=== PATIENT | female | born 1955 | race Caucasian/White ===

== ENCOUNTER 2018-06-11 10:12 | Inpatient (IN) | payer BC ==
--- NOTE | 2018-06-11 11:09 | ED ---
Shortness of Breath - HPI Summary HPI Summary: The pt is a 62 y/o female with a MHx of COPD presenting to [facility] c/o SOB since yesterday. She notes cough dizziness, fever, chills, and cough. The pt was seen at [facility] yesterday for a sinus infection and discharged with an Aumentin prescription, which she last took this morning. She also took a nebulizer q4 hrs , steroids and Lasix to no relief. She denies a hx of CHF. - History of Current Complaint Chief Complaint: EDShortnessOfBreath Time Seen by Provider: 06/11/18 10:47 Hx Obtained From: Patient, Family/Work Station Support Specialist - Onset/Duration: Lasting Days - 1 day, Still Present Timing: Constant Alleviating Factors: Other - Coughing Associated Signs & Symptoms: Cough (Productive), Fever, Chills, Dizzy - Allergy/Home Medications Allergies/Adverse Reactions: Allergies Allergy/AdvReac Type Severity Reaction Status Date / Time Iodinated Contrast- Oral and Allergy Rash And Verified 06/11/18 10:37 IV Dye Itching Sulfa (Sulfonamide Allergy Hives Verified 06/11/18 10:37 Antibiotics) warfarin Allergy Rash And Verified 06/11/18 10:37 Itching Home Medications: Home Medications Albuterol 2.5MG/3ML (0.083%)* [Ventolin 2.5 MG/3 ML NEB.DAMION*] 2.5 mg INH Q4H PRN 06/11/18 [History Confirmed 06/11/18] Ascorbic Acid TAB* [Vitamin C TAB*] 250 mg PO DAILY 06/11/18 [History Confirmed 06/11/18] Baclofen TAB* [Lioresal TAB*] 20 mg PO BID 06/11/18 [History Confirmed 06/11/18 ] Dexamethasone TAB* [Decadron TAB*] 1 mg PO TU 06/11/18 [History Confirmed ] Dexamethasone TAB* [Decadron TAB*] 1.5 mg PO MO 06/11/18 [History Confirmed ] Fluticasone/Vilanterol MDI(NF) [Breo Ellipta MDI 200/25(NF)] 1 puff INH DAILY [History Confirmed 06/11/18] Krill Oil 500 mg PO DAILY 06/11/18 [History Confirmed 06/11/18] Lenalidomide (NF) [Revlimid (NF)] 25 mg PO QPM 06/11/18 [History Confirmed 06/11] Lidocaine PATCH 5%* [Lidoderm 5% Patch*] 1 patch TRANSDERM DAILY 06/11/18 [ History Confirmed 06/11/18] Magnesium Gluconate 250 mg PO BID 06/11/18 [History Confirmed 06/11/18] Nicotine PATCH 21 MG/24 HR* 21 mg TRANSDERM DAILY 06/11/18 [History Confirmed ] Omeprazole CAP* [Prilosec CAP* 20 MG] 20 mg PO DAILY PRN 06/11/18 [History Confirmed 06/11/18] Ondansetron TAB* [Zofran 4 MG Tab*] 4 mg PO Q6H PRN 06/11/18 [History Confirmed 06/11/18] Oxybutynin TAB* [Ditropan TAB*] 2.5 mg PO BID 06/11/18 [History Confirmed ] Rivaroxaban TAB(*) [Xarelto 20 mg] 20 mg PO DAILY 06/11/18 [History Confirmed ] Zoledronic Acid* [Zometa] 4 mg IV MONTHLY 06/11/18 [History Confirmed 06/11/18] PMH/Surg Hx/FS Hx/Imm Hx Previously Healthy: No Endocrine/Hematology History: Denies: Hx Diabetes Cardiovascular History: Reports: Hx Hypercholesterolemia, Hx Hypotension Denies: Hx Hypertension, Hx Pacemaker/ICD Respiratory History: Reports: Hx Chronic Obstructive Pulmonary Disease (COPD) Denies: Hx Asthma, Hx Pulmonary Embolism GI History: Reports: Hx Diverticulosis, Hx Gall Bladder Disease History: Denies: Hx Renal Disease Musculoskeletal History: Reports: Hx Arthritis - left knee, Hx Back Problems Sensory History: Reports: Hx Contacts or Glasses Denies: Hx Hearing Aid Opthamlomology History: Reports: Hx Contacts or Glasses EENT History: Reports: Other - Sinus infection Psychiatric History: Denies: Hx Panic Disorder - Cancer History Cancer Type, Location and Year: RECENT DIAGNOSIS OF SPINAL TUMORS REMOVED AT [facility] 2014 Hx Chemotherapy: Yes Hx Radiation Therapy: No - Surgical History Surgery Procedure, Year, and Place: GALLBLADDER, TUBAL LIGATION,. TUMORS REMOVED FROM SPINE( @ [place]), W/ HONORIO PLACEMENT DUE TO DETORIATION - Immunization History Date of Influenza Vaccine: Up to date Infectious Disease History: No Infectious Disease History: Denies: Traveled Outside the [place] in Last 30 Days - Social History Occupation: Employed Part-time, Retired Lives: With Family Alcohol Use: None Substance Use Type: Reports: None Smoking Status (MU): Current Every Day Smoker Type: Cigarettes Amount Used/How Often: 1 pack/day Have You Smoked in the Last Year: Yes Review of Systems Constitutional: Other - Positive: Dizziness Positive: Fever, Chills Positive: Shortness Of Breath, Cough All Other Systems Reviewed And Are Negative: Yes Physical Exam - Summary Physical Exam Summary: GENERAL: Patient is a well developed and nourished F who is lying comfortable in the stretcher. Pt appears uncomfortable secondary to coughing. HEAD AND FACE: Normocephalic EYES: PERRLA, EOMI x 2. EARS: Hearing grossly intact. MOUTH: Oropharynx within normal limits. NECK: Supple, trachea is midline, no adenopathy, no JVD, no carotid bruit. CHEST: Symmetric, no tenderness at palpation LUNGS: Clear to auscultation bilaterally. Decreased breath sounds bilaterally in the in lower lobes CVS: Regular rate and rhythm, S1 and S2 present, no murmurs or gallops appreciated. ABDOMEN: Soft, non-tender. Bowel sounds are normal. No abdominal abnormal pulsations. EXTREMITIES: Full ROM in all major joints, no edema, no cyanosis or clubbing. NEURO: Alert and oriented x 3. No acute neurological deficits. Speech is normal and follows commands. SKIN: Dry and warm Triage Information Reviewed: Yes Vital Signs On Initial Exam: Initial Vitals Temp Pulse Resp BP Pulse Ox 98.8 F 98 24 141/65 92 06/11/18 10:31 06/11/18 10:31 06/11/18 10:31 06/11/18 10:31 06/11/18 10:31 Vital Signs Reviewed: Yes Diagnostics - Vital Signs Vital Signs Temp Pulse Resp BP Pulse Ox 06/11/18 10:31 98.8 F 98 24 141/65 92 - Laboratory Result Diagrams: 06/11/18 12:13 06/11/18 12:13 Lab Statement: Any lab studies that have been ordered have been reviewed, and results considered in the medical decision making process. - Radiology CXR Radiology Interpretation Completed By: Radiologist - IMPRESSION: LEFT BASILAR INFILTRATE MOST CONSISTENT WITH PNEUMONIA. RECOMMEND FOLLOW-UP CHEST X-RAYS TO RESOLUTION. The ED physician reviewed this radiology report. Re-Evaluation - Re-Evaluation First Eval Re-Evaluation Time: 13:52 Change: Unchanged - Pt notes Constant pain but declines pain medications. The pain is aggravated by deep breath Course/Dx - Course Course Of Treatment: A 62 year-old F presents to the ED with a CC of SOB since yesterday. She notes cough dizziness, fever, chills, and cough. She also took a nebulizer q4 hrs, steroids and Lasix to no relief. A physical exam revealed decreased breath sounds bilaterally in the in lower lobes and discomfort secondary to coughing. A CXR revealed L basilar infiltrates consistent with PNA. In the ED course, pt was given Albuterol 1 neb INH twice, Dexamethasone 10 mg IV, N.s 0.9% 1000mL IV, Potassium chloride 40 meq, Cefriaxone 1mg in N.s 0.9% 50 mL IVPB and Azithromycin 500mg in N.s 0.9% 500 mL IV which improved the symptoms. I discussed the care of the patient with Dr. Jamie MD who agreed to admit the pt. Patient will be admitted with a final Dx of pneumonia. I discussed results with patient. The patient agrees with this plan. Allergies noted. - Diagnoses Provider Diagnoses: Pneumonia - Physician Notifications Discussed Care of Patient With: Linda Ayala - Hospitalist Instructed by Provider To: Admit As Inpatient Discharge - Sign-Out/Discharge Documenting (check all that apply): Patient Departure - Admit - Discharge Plan Condition: Stable Disposition: ADMITTED TO [facility] - Billing Disposition and Condition Condition: STABLE Disposition: Admitted to [facility] - Attestation Statements Document Initiated by Bobbyibsherley: Yes Documenting Scribe: Caroline Arambula Provider For Whom Adal is Documenting (Include Credential): Dr. Kaylin Qureshi MD Scribe Attestation: Caroline Soliz , scribed for Dr. Kaylin Qureshi MD on 06/11/18 at 2042. Scribe Documentation Reviewed: Yes Provider Attestation: The documentation as recorded by the Caroline olivares accurately reflects the service I personally performed and the decisions made by me, Dr. Kaylin Qureshi MD
[2018-06-11] MEDS ORDERED: NS 0.9% 500 ML* 500 ML IV ONE (11:12)
[2018-06-11] MEDS ORDERED: Dexamethasone IV* 4 MG/ML 5 ML VIAL (20 MG) IVPB ONE (11:12)
[2018-06-11] MEDS ORDERED: Albuterol/Ipratropium NEB.SOL* Albuterol 2.5 MG/Ipratropium 0.5 MG 3 ML INH ONE ×2 (11:12→11:13)
[2018-06-11 12:26] LABS: ABS Basophils 0 10^3/ul (0-0.2); ABS Eosinophils 0 10^3/ul (0-0.6); ABS Lymphocytes 1.1 10^3/ul (1.0-4.8); ABS Monocytes 0.4 10^3/ul (0-0.8); ABS Neutrophils 5.8 10^3/ul (1.5-7.7); ABS Nucleated RBC 0 10^3/ul; Eosinophil % 0.4 % (0-6); Hematocrit 40 % (35-47); Hemoglobin 13.5 g/dl (12.0-16.0); Lymphocyte % 14.6 % (25-47); Mean Corpuscular HGB Conc 34 g/dl (31-36); Mean Corpuscular Hemoglobin 32 pg (27-31); Mean Corpuscular Volume 94 fL (80-97); Mean Platelet Volume 9.2 um3 (7.4-10.4); Nucleated Red Blood Cells % 0; Platelet Count 176 10^3/ul (150-450); Red Blood Count 4.24 10^6/ul (4.00-5.40); Red Cell Distribution Width 16 % (10.5-15); White Blood Count 7.3 10^3/ul (3.5-10.8)
[2018-06-11 12:47] LABS: EGFR Non-African American 92.1 (>60)
[2018-06-11 12:49] LABS: INR 1.14 (0.77-1.02)
[2018-06-11] MEDS ORDERED: Azithromycin IV(*) 500 MG in NS 0.9% 250 ML* 250 ML IVPB ONE (13:12)
[2018-06-11] MEDS ORDERED: cefTRIAXone(*) 1 GM in NS 0.9% 50 ML* 50 ML IVPB ONE (13:13)
[2018-06-11] MEDS ORDERED: Potassium Chlor TAB* 20 MEQ TAB.ER PO ONE (13:14)
--- NOTE | 2018-06-11 13:37 | RAD ---
INDICATION: Cough. COMPARISON: Comparison is made with a prior study from March 31, 2015. TECHNIQUE: Dual-energy PA and lateral views of the chest were obtained. FINDINGS: The heart is within normal limits in size. Mediastinal and hilar contours appear within normal limits. The lungs are underinflated. There is a focal infiltrate present at the left lung base in the left upper lobe. No pleural effusion is seen. Postsurgical changes are noted in the lower dorsal upper lumbar spine. IMPRESSION: LEFT BASILAR INFILTRATE MOST CONSISTENT WITH PNEUMONIA. RECOMMEND FOLLOW-UP CHEST X-RAYS TO RESOLUTION.
[2018-06-11] MEDS ORDERED: Al Hydrox/Mg Hydrox/Simet LIQ* 30 ML UDC PO PRN (14:33)
[2018-06-11] MEDS ORDERED: Magnesium Hydroxide LIQ* 30 ML UDC PO PRN (14:33)
[2018-06-11] MEDS ORDERED: Albuterol/Ipratropium NEB.SOL* Albuterol 2.5 MG/Ipratropium 0.5 MG 3 ML INH PRN (14:33)
[2018-06-11] MEDS ORDERED: cefTRIAXone(*) 1 GM in NS 0.9% 50 ML* 50 ML IVPB SCH ×2 (15:00→16:00)
[2018-06-11] MEDS ORDERED: Azithromycin IV(*) 500 MG in NS 0.9% 250 ML* 250 ML IVPB SCH (15:00)
[2018-06-11] MEDS ORDERED: Omeprazole CAP* 20 MG PO PRN (17:05)
[2018-06-11] MEDS: Acetaminophen TAB* 325 MG PO PRN (17:23)
[2018-06-11] MEDS: NS 0.9% 1000 ML* 1,000 ML IV SCH (17:24)
[2018-06-11 18:37] LABS: Urine Appearance Clear; Urine Blood Negative (Negative); Urine Color Straw; Urine Ketones Negative (Negative); Urine Protein Negative (Negative); Urine Specific Gravity 1.008 (1.010-1.030); Urine Urobilinogen Negative (Negative)
[2018-06-11] MEDS: Oxybutynin TAB* 5 MG PO SCH (20:37)
[2018-06-11] MEDS: Baclofen TAB* 20 MG PO SCH (20:38)
[2018-06-11] MEDS: Nicotine Patch Removal NOTE PATCH OFF SCH (20:38)
[2018-06-11] MEDS: Lidocaine Patch REMOVE* 1 NOTE MISC PATCH OFF SCH (20:39)
--- NOTE | 2018-06-11 21:31 | HP ---
AMENDED REPORT NOW INCLUDES DESIGNATED COSIGNER CC: Dr. Janell Gunter; Dr. Dempsey * HISTORY AND PHYSICAL: DATE OF ADMISSION: 06/11/18 PRIMARY CARE PROVIDER: Dr. Janell Gunter. ATTENDING PHYSICIAN: Dr. Ayala* (dictated by Bulmaro Polk NP). CHIEF COMPLAINT: 1. Difficulty breathing. 2. Coughing. 3. Congestion. 4. Muscle aches. HISTORY OF PRESENT ILLNESS: Ms. Baker is a 62-year-old female with a history of COPD, who presented to the ED today with complaints of shortness of breath, coughing, congestion since yesterday. She also notes she has been feeling intermittently dizzy, feverish, chills, and was up all night coughing. The patient reports symptoms started yesterday gradually and she presented to [facility], who diagnosed her with sinusitis due to sinus headache and provided her with a prescription of Augmentin. The patient took 1 dose of Augmentin. Due to being up all night coughing and needing inhalers/nebulizers every few hours overnight, she presented to the ED this morning. On presentation to the ED, the patient was noted to be tachypneic with a respiratory rate of 24. While in the emergency room, a chest x-ray was completed and impression was left basilar infiltrate most consistent with pneumonia. In addition, the patient received DuoNeb inhalations x2, azithromycin, ceftriaxone, Decadron, potassium, and 500 mL of normal saline. Hospitalist team was consulted for admission due to pneumonia. PAST MEDICAL HISTORY: 1. COPD. 2. Spinal compression with paralysis, T10/resolved. 3. Multiple myeloma/remission. 4. Neurogenic bladder/resolved. 5. PE. Four to five years ago, currently anticoagulated due to PE and history of multiple myeloma. 6. UTI (a few weeks ago). PAST SURGICAL HISTORY: 1. Thoracic fusion. 2. Cholecystectomy. 3. Tubal ligation. HOME MEDICATIONS: 1. Zometa 4 mg IV monthly. 2. Zofran 4 mg tabs p.o. q.6 hours p.r.n. 3. Xarelto 20 mg p.o. daily. 4. Krill oil 500 mg p.o. daily. 5. Vitamin C 250 mg p.o. daily. 6. Revlimid 25 mg p.o. q.p.m. 7. Oxybutynin 2.5 mg p.o. b.i.d. 8. Omeprazole 20 mg p.o. daily. 9. Nicotine patch 21 mg transdermally daily. 10. Magnesium gluconate 250 mg p.o. b.i.d. 11. Lidocaine patch, 1 patch transdermally daily. 12. Lasix 20 mg p.o. daily p.r.n. edema. 13. Dexamethasone 1.5 mg p.o. Thursday. 14. Decadron 1 mg p.o. Thursday. 15. Breo Ellipta 1 puff inhalation daily. 16. Baclofen 20 mg p.o. b.i.d. 17. Albuterol 2.5 mg inhalation q.4 hours. ALLERGIES: CONTRAST DYE, SULFA, COUMADIN, DOXYCYCLINE, AUGMENTIN. FAMILY HISTORY: The patient reports family history is limited, but is unaware of family history of CAD or diabetes. Reports mother had lung cancer. SOCIAL HISTORY: The patient is a current tobacco smoker, 1 pack a day for approximately 30 years. Denies alcohol use. Denies drug use. The patient does not work. The patient is . Lives with her . Has 2 grown children. The patient uses a walker for ambulation. The patient completes ADLs independently. REVIEW OF SYSTEMS: Constitutional: The patient reports fever-like symptoms, chills. Denies anorexia. Cardiac: No chest pain, no edema. Respiratory: The patient reports cough and shortness of breath. No hemoptysis. GI: The patient denies nausea or vomiting. No diarrhea. No abdominal pain. : No gross hematuria. No dysuria. Neurology: No focal weakness or sensory loss. Reports sinus headache, mild. Eyes: No visual complaints. ENT: No dysphagia , no nasal congestion, no ear pain. Musculoskeletal: Reports mild muscle aches. Skin: No rashes, lesions. Psych: No psychosis, anxiety, depression, or SI. PHYSICAL EXAMINATION GENERAL: Ms. Baker is a 62-year-old female. She is well developed, well nourished, and slightly obese, sitting up on the ED stretcher, in no acute distress. Appears stated age. is at bedside. VITAL SIGNS: Temp 100.0, HR 89, RR 18, O2 92% on room air, BP 145/63. HEENT: Conjunctivae normal. Pupils are equal and reactive. EOMs intact. External ears within normal limits. Auditory canals patent. TMs within normal limits. Oropharynx is moist. No erythema, exudate, or lesions. LYMPHATIC: No cervical lymphadenopathy. RESPIRATORY: Effort: No use of accessory muscles. The patient is breathing with ease. Occasional cough noted. Lungs: Aeration is diminished. Sparse wheezing. Rhonchi noted in left lower base. CARDIAC: No murmurs, rubs, or gallops. S1 and S2 present. No edema. Positive pedal pulses. ABDOMEN: Soft, nontender, nondistended. Bowel sounds x4. MUSCULOSKELETAL: No clubbing or cyanosis. No abnormalities. Full range of motion. NEURO: CN II through XII intact. Moves all extremities. Sensation grossly intact. PSYCH: Oriented x3. Mood and affect normal. No anxiety, depression. SKIN: Inspection, no rashes. Palpation, no abnormalities. DIAGNOSTIC STUDIES/LAB DATA: Chest x-ray: Impression: Left basilar infiltrate most consistent with pneumonia. Recommend followup chest x-ray to resolution. WBC 7.3, RBC 4.24, hemoglobin 13.5, hematocrit is 40. Sodium 136, potassium 3.2 , chloride 103, carbon dioxide 26, BUN 7, creatinine 0.65, glucose 157, calcium 8.8. CRP 146.11. BNP 137. ASSESSMENT AND PLAN: Ms. Baker is a 62-year-old female with a past medical history of chronic obstructive pulmonary disease, multiple myeloma, spinal compression, who presents to the ED today with shortness of breath, cough, congestion, and was found to have pneumonia. The patient will be admitted inpatient for pneumonia. 1. Pneumonia: Assessment: The patient is breathing without difficulty with occasional cough noted. Lung sounds as above. Albuterol nebulizers ordered q.4 hours p.r.n. Prednisone ordered 50 mg p.o. daily to start tomorrow. Rocephin 1 g q.24 hours. Azithromycin 500 mg q. day. We will monitor the patient's O2 saturation and encourage incentive spirometry and nebulization. We will repeat chest x-ray tomorrow if deemed necessary. Labs will be repeated tomorrow including CRP, CBC, BMP. 2. Systemic inflammatory response syndrome/sepsis: It should be noted that during the patient's emergency room visit, her temp was 100.0, she was noted to be tachypneic at 24 respirations per minute. The patient was pancultured while in the ED. I have also ordered sputum culture. Antibiotics have been ordered. The patient has received approximately 850 mL normal saline in the ED. I will initiate further fluid resuscitation with normal saline 75 mL an hour x1 bag. I am not fluid resuscitating aggressively due to the patient's risk for fluid retention due to obesity and edema (for which she takes Lasix as needed). We also noted to have a mildly elevated BNP at 137. 3. Chronic obstructive pulmonary disease: Assessment: The patient is breathing with ease. Plan: We will continue nebulizers q.4 hours p.r.n. We will also continue the patient's home medication of Breo Ellipta 1 puff inhalation daily. Prednisone will be started tomorrow. Received dexamethasone in the ED. We will encourage incentive spirometry and monitor O2 saturation. 4. Multiple myeloma: Assessment: The patient reports she is in remission and follows with Dr. Dempsey. Plan: My attending, Dr. Ayala, spoke to Dr. Dempsey and we will hold the patient's Revlimid and give prednisone 50 mg daily for 5 days. 5. FEN: As mentioned above, the patient received approximately 850 mL of normal saline in the ED. I will further fluid resuscitate the patient with 1000 mL normal saline at 75 mL per hour. The patient will be given a regular diet and encouraged to take p.o. fluids. 6. Code status: Full code. 7. DVT prophylaxis: The patient is on Xarelto for pulmonary embolism history and multiple myeloma. We will continue with Xarelto. Ordered SCDs and encouraged early ambulation. 8. Healthcare proxy: , Girish Baker. TIME SPENT: Approximately 60 minutes was spent on the admission, greater than half the time was spent with the patient and caregiver obtaining my history, performing my physical exam, and reviewing my plan of care. The case has been reviewed with my attending, Dr. Ayala, who is in agreement with this plan. BULMARO POLK, KYLE [id number]/[facility] #: [id number] [facility]IMINALLY INSANESeth
[2018-06-11] MEDS: Benzonatate CAP* 100 MG PO PRN (23:20)
[2018-06-12] MEDS: Acetaminophen TAB* 325 MG PO PRN ×4 (04:12→22:50)
[2018-06-12] MEDS ORDERED: Albuterol 2.5 MG/3 ML NEB.SOL* (0.083%) INH PRN (07:36)
[2018-06-12 07:48] LABS: ABS Basophils 0 10^3/ul (0-0.2); ABS Eosinophils 0 10^3/ul (0-0.6); ABS Monocytes 0.3 10^3/ul (0-0.8); ABS Neutrophils 4.5 10^3/ul (1.5-7.7); ABS Nucleated RBC 0 10^3/ul; Eosinophil % 0.5 % (0-6); Hematocrit 39 % (35-47); Hemoglobin 13.1 g/dl (12.0-16.0); Lymphocyte % 16.6 % (25-47); Mean Corpuscular HGB Conc 34 g/dl (31-36); Mean Corpuscular Hemoglobin 32 pg (27-31); Mean Corpuscular Volume 95 fL (80-97); Mean Platelet Volume 9.5 um3 (7.4-10.4); Nucleated Red Blood Cells % 0; Platelet Count 174 10^3/ul (150-450); Red Blood Count 4.08 10^6/ul (4.00-5.40); Red Cell Distribution Width 16 % (10.5-15); White Blood Count 5.8 10^3/ul (3.5-10.8)
[2018-06-12 07:57] LABS: EGFR Non-African American 93.7 (>60)
[2018-06-12] MEDS: NS 0.9% 1000 ML* 1,000 ML IV SCH ×3 (08:19→21:03)
[2018-06-12] MEDS: Nicotine PATCH 21 MG/24 HR* PATCH TRANSDERM SCH (08:23)
[2018-06-12] MEDS: Baclofen TAB* 20 MG PO SCH ×2 (08:23→20:28)
[2018-06-12] MEDS: Rivaroxaban TAB(*) 20 MG TAB PO SCH (08:23)
[2018-06-12] MEDS: Ascorbic Acid TAB* 500 MG PO SCH (08:24)
[2018-06-12] MEDS: Magnesium Oxide TAB* 400 MG PO SCH (08:24)
[2018-06-12] MEDS: predniSONE TAB* 50 MG PO SCH (08:24)
[2018-06-12] MEDS: Oxybutynin TAB* 5 MG PO SCH ×2 (08:24→20:28)
[2018-06-12] MEDS: Lidocaine PATCH 5%* 1 PATCH TRANSDERM SCH (08:25)
[2018-06-12] MEDS: Ondansetron TAB* 4 MG PO PRN ×2 (09:49→20:29)
[2018-06-12] MEDS: Benzonatate CAP* 100 MG PO PRN ×3 (13:32→20:28)
--- NOTE | 2018-06-12 14:16 | PN ---
Subjective Date of Service: 06/12/18 Interval History: Pt seen and examined. Meds and labs reviewed. Pt feels her SOB has improved CC: N/A ROS: Denied VEGA/dizziness, F/C, N/V, CP, SOB, increased cough, sputum production , abd pain, diarrhea, constipation, dysuria, myalgias, arthralgias, throat pain , and new skin lesions. The rest of the 14 point ROS are unremarkable. PHYSICAL EXAM: GEN APPEARANCE: Awake, not in acute distress HEENT: NC/AT, PERRLA, moist oral mucosa, (-) throat erythema NECK: Soft, supple, (-) cervical LAD, (-)JVD HEART: S1S2 WNL, RRR, No MRG CHEST: Occasional diffuse crackles, GAE, No W/R/R ABD: Soft, ND/NT, NABS 4x Q EXT: No C/C/E SKIN: Warm to touch PSYCH: No active psychosis, hallucinations, depression, SI/HI Objective Active Medications: Acetaminophen (Tylenol Tab*) 650 mg PO Q4H PRN PRN Reason: FEVER/PAIN Last Admin: 06/12/18 11:17 Dose: 650 mg Al Hydrox/Mg Hydrox/Simethicone (Maalox Plus*) 30 ml PO Q6H PRN PRN Reason: INDIGESTION Albuterol (Ventolin 2.5 Mg/3 Ml Neb.Ly*) 2.5 mg INH Q2H PRN PRN Reason: SOB/WHEEZING Albuterol/Ipratropium (Duoneb (Albuterol 2.5 Mg/Ipratropium 0.5 Mg)) 1 neb INH [id number] AWAKE PRN PRN Reason: sob/wheexing Ascorbic Acid (Vitamin C Tab*) 250 mg PO DAILY [facility] Last Admin: 06/12/18 08:24 Dose: 250 mg Baclofen (Lioresal Tab*) 20 mg PO BID [facility] Last Admin: 06/12/18 08:23 Dose: 20 mg Benzonatate (Tessalon Cap*) 100 mg PO TID PRN PRN Reason: COUGH Last Admin: 06/12/18 13:32 Dose: 100 mg Ceftriaxone Sodium 1 gm/ (Sodium Chloride) 50 mls @ 200 mls/hr IVPB 1600 [facility] Azithromycin 500 mg/ Sodium (Chloride) 250 mls @ 250 mls/hr IVPB 1500 [facility] Sodium Chloride (Ns 0.9% 1000 Ml*) 1,000 mls @ 100 mls/hr IV PER RATE [facility] Stop: 06/13/18 18:18 Last Admin: 06/12/18 08:23 Dose: 100 mls/hr Lidocaine (Lidoderm 5% Patch*) 1 patch TRANSDERM DAILY [facility] Last Admin: 06/12/18 08:25 Dose: Not Given Magnesium Hydroxide (Milk Of Magnesia Liq*) 30 ml PO Q4H PRN PRN Reason: CONSTIPATION Magnesium Oxide (Magox 400 Tab*) 400 mg PO DAILY [facility] Last Admin: 06/12/18 08:24 Dose: 400 mg Nicotine (Nicotine Patch 21 Mg/24 Hr*) 1 patch TRANSDERM DAILY [facility] Last Admin: 06/12/18 08:23 Dose: 1 patch Omeprazole (Prilosec Cap*) 20 mg PO DAILY PRN PRN Reason: HEARTBURN Ondansetron HCl (Zofran Tab*) 4 mg PO Q6H PRN PRN Reason: NAUSEA Last Admin: 06/12/18 09:49 Dose: 4 mg Oxybutynin Chloride (Ditropan Tab*) 2.5 mg PO BID [facility] Last Admin: 06/12/18 08:24 Dose: 2.5 mg Pharmacy Profile Note (Nicotine Patch Removal Note*) 1 note PATCH OFF 2100 [facility] Last Admin: 06/11/18 20:38 Dose: Not Given Pharmacy Profile Note (Lidocaine Patch Remove*) 1 note PATCH OFF 2100 [facility] Last Admin: 06/11/18 20:39 Dose: Not Given Prednisone (Deltasone Tab*) 50 mg PO DAILY [facility] Last Admin: 06/12/18 08:24 Dose: 50 mg Rivaroxaban (Xarelto(*)) 20 mg PO DAILY [facility] Last Admin: 06/12/18 08:23 Dose: 20 mg Vital Signs - 8 hr 06/12/18 06/12/18 06/12/18 07:15 07:25 08:31 Temperature 97.8 F Pulse Rate 65 Respiratory 16 16 Rate Blood Pressure 130/39 128/58 (mmHg) O2 Sat by Pulse 100 Oximetry 06/12/18 11:23 Temperature 97.3 F Pulse Rate 74 Respiratory 16 Rate Blood Pressure 156/51 (mmHg) O2 Sat by Pulse 96 Oximetry Oxygen Devices in Use Now: None Result Diagrams: 06/12/18 06:49 06/12/18 06:49 Microbiology and Other Data: Microbiology 06/11/18 12:12 Aerobic Blood Culture - Preliminary Blood Venous No Growth Day 1 Anaerobic Blood Culture - Preliminary No Growth Day 1 06/11/18 12:11 Aerobic Blood Culture - Preliminary Blood Venous No Growth Day 1 Anaerobic Blood Culture - Preliminary No Growth Day 1 06/12/18 08:31 Gram Stain - Final Sputum 06/11/18 17:38 Legionella Urinary Antigen - Final Urine Negative Legionella Antigen Streptococcus pneumoniae Ag Screen - Final Negative S. pneumo Antigen 06/11/18 15:20 Influenza Types A,B Antigen - Final Nasopharyngeal Specimen received for Influenza A/B Molecular testing Assess/Plan/Problems-Billing Assessment: - Patient Problems (1) Sepsis due to pneumonia Current Visit: Yes Status: Acute Code(s): J18.9 - PNEUMONIA, UNSPECIFIED ORGANISM; A41.9 - SEPSIS, UNSPECIFIED ORGANISM SNOMED Code(s): 65399890 Comment: -Continue Rocephin and Azithromycin -Sepsis appears to be improving and likely other factors driving increasing lactic acid level---please see discussion below -Continue Prednisoneif pt continues to improve, start tapering in AM -Urine Ag test for Legionella and S. pneumo (-) -Blood Cx (-) x1 day (2) Lactic acid blood increased Current Visit: Yes Status: Acute Code(s): R79.89 - OTHER SPECIFIED ABNORMAL FINDINGS OF BLOOD CHEMISTRY SNOMED Code(s): 6589568 Comment: -Despite improvement of sepsis, lactic acid continues to climbdoubt that most of its elevation is due to sepsis as pt appears clinically improved and currently hemodynamically stable without any respiratory distress -On review of past data, pt has had what appears to be chronic elevation of lactic acid and maybe related to the fact that pt has had history of multiple myeloma, now thought to be in remission -Pt mentioned she just F/U at Dr. Sosa office 2 weeks [employer] and was told that everything was fine -Will defer on F/U with Heme/Onc (3) Multiple myeloma Current Visit: Yes Status: Acute Code(s): C90.00 - MULTIPLE MYELOMA NOT HAVING ACHIEVED REMISSION SNOMED Code(s): 592629118 Comment: -Thought to be in remission from last Heme/Onc F/U described above -Possible cause of increasing lactic acid? -Off of Revlimid while PNA w/mild sepsis being treated (4) COPD (chronic obstructive pulmonary disease) Current Visit: Yes Status: Acute Code(s): J44.9 - CHRONIC OBSTRUCTIVE PULMONARY DISEASE, UNSPECIFIED SNOMED Code(s): 45848339 Comment: -Not in acute exacerbation at this time -Continue current nebulization treatment (5) Hx pulmonary embolism Current Visit: Yes Status: Acute Code(s): Z86.711 - PERSONAL HISTORY OF PULMONARY EMBOLISM SNOMED Code(s): 269533923 Comment: -Continue Xarelto (6) Tobacco abuse Current Visit: No Status: Chronic Priority: Medium Code(s): Z72.0 - TOBACCO USE SNOMED Code(s): 692422724 Comment: -Advised lifestyle modifications -Continue Nicotine patch (7) DVT prophylaxis Current Visit: No Status: Acute Priority: Medium Onset Date: 08/23/14 Code(s): JEP1823 - SNOMED Code(s): 885951294 Comment: -On Xarelto Status and Disposition: -For ambulatory sats in AM
[2018-06-12] MEDS: Azithromycin IV(*) 500 MG in NS 0.9% 250 ML* 250 ML IVPB SCH (14:58)
[2018-06-12] MEDS ORDERED: cefTRIAXone(*) 1 GM in NS 0.9% 50 ML* 50 ML IVPB SCH (15:00)
[2018-06-12] MEDS ORDERED: Azithromycin IV(*) 500 MG in NS 0.9% 250 ML* 250 ML IVPB SCH (15:00)
[2018-06-12] MEDS: cefTRIAXone(*) 1 GM in NS 0.9% 50 ML* 50 ML IVPB SCH (16:24)
[2018-06-12] MEDS: Lidocaine Patch REMOVE* 1 NOTE MISC PATCH OFF SCH (20:30)
[2018-06-12] MEDS: Nicotine Patch Removal NOTE PATCH OFF SCH (20:30)
[2018-06-12] MEDS: Hemorrhoidal OINT PR PRN (23:13)
[2018-06-13] MEDS: Acetaminophen TAB* 325 MG PO PRN ×4 (03:51→19:20)
[2018-06-13 06:34] LABS: ABS Basophils 0 10^3/ul (0-0.2); ABS Eosinophils 0.1 10^3/ul (0-0.6); ABS Lymphocytes 1.6 10^3/ul (1.0-4.8); ABS Monocytes 0.6 10^3/ul (0-0.8); ABS Neutrophils 3.9 10^3/ul (1.5-7.7); ABS Nucleated RBC 0 10^3/ul; Hematocrit 34 % (35-47); Hemoglobin 11.2 g/dl (12.0-16.0); Lymphocyte % 26.2 % (25-47); Mean Corpuscular HGB Conc 33 g/dl (31-36); Mean Corpuscular Hemoglobin 32 pg (27-31); Mean Corpuscular Volume 96 fL (80-97); Mean Platelet Volume 8.4 um3 (7.4-10.4); Nucleated Red Blood Cells % 0; Platelet Count 174 10^3/ul (150-450); Red Blood Count 3.54 10^6/ul (4.00-5.40); Red Cell Distribution Width 16 % (10.5-15); White Blood Count 6.1 10^3/ul (3.5-10.8)
[2018-06-13 06:45] LABS: EGFR Non-African American 109.3 (>60)
[2018-06-13] MEDS: Lidocaine PATCH 5%* 1 PATCH TRANSDERM SCH (07:47)
[2018-06-13] MEDS: Oxybutynin TAB* 5 MG PO SCH ×2 (07:53→21:15)
[2018-06-13] MEDS: Ascorbic Acid TAB* 500 MG PO SCH (07:54)
[2018-06-13] MEDS: Rivaroxaban TAB(*) 20 MG TAB PO SCH (07:55)
[2018-06-13] MEDS: predniSONE TAB* 50 MG PO SCH (07:55)
[2018-06-13] MEDS: Magnesium Oxide TAB* 400 MG PO SCH (07:55)
[2018-06-13] MEDS: Baclofen TAB* 20 MG PO SCH ×2 (07:56→21:15)
[2018-06-13] MEDS: Nicotine PATCH 21 MG/24 HR* PATCH TRANSDERM SCH (07:56)
[2018-06-13] MEDS: Benzonatate CAP* 100 MG PO PRN ×3 (08:03→21:19)
[2018-06-13] MEDS: Hemorrhoidal OINT PR PRN (12:55)
--- NOTE | 2018-06-13 13:59 | PN ---
Subjective Date of Service: 06/13/18 Interval History: Pt seen and examined. Meds and labs reviewed. Pt feels her SOB has improved CC: N/A ROS: Denied VEGA/dizziness, F/C, N/V, CP, SOB, increased cough, sputum production , abd pain, diarrhea, constipation, dysuria, myalgias, arthralgias, throat pain , and new skin lesions. The rest of the 14 point ROS are unremarkable. PHYSICAL EXAM: GEN APPEARANCE: Awake, not in acute distress HEENT: NC/AT, PERRLA, moist oral mucosa, (-) throat erythema NECK: Soft, supple, (-) cervical LAD, (-)JVD HEART: S1S2 WNL, RRR, No MRG CHEST: Occasional crackles, now primarily located on bases, GAE, No W/R/R ABD: Soft, ND/NT, NABS 4x Q EXT: No C/C/E SKIN: Warm to touch PSYCH: No active psychosis, hallucinations, depression, SI/HI Objective Active Medications: Acetaminophen (Tylenol Tab*) 650 mg PO Q4H PRN PRN Reason: FEVER/PAIN Last Admin: 06/13/18 12:58 Dose: 650 mg Al Hydrox/Mg Hydrox/Simethicone (Maalox Plus*) 30 ml PO Q6H PRN PRN Reason: INDIGESTION Albuterol (Ventolin 2.5 Mg/3 Ml Neb.Ly*) 2.5 mg INH Q2H PRN PRN Reason: SOB/WHEEZING Albuterol/Ipratropium (Duoneb (Albuterol 2.5 Mg/Ipratropium 0.5 Mg)) 1 neb INH [id number] AWAKE PRN PRN Reason: sob/wheexing Ascorbic Acid (Vitamin C Tab*) 250 mg PO DAILY [facility] Last Admin: 06/13/18 07:54 Dose: 250 mg Baclofen (Lioresal Tab*) 20 mg PO BID [facility] Last Admin: 06/13/18 07:56 Dose: 20 mg Benzonatate (Tessalon Cap*) 100 mg PO TID PRN PRN Reason: COUGH Last Admin: 06/13/18 08:03 Dose: 100 mg Ceftriaxone Sodium 1 gm/ (Sodium Chloride) 50 mls @ 200 mls/hr IVPB 1600 [facility] Last Admin: 06/12/18 16:24 Dose: 200 mls/hr Azithromycin 500 mg/ Sodium (Chloride) 250 mls @ 250 mls/hr IVPB 1500 [facility] Last Admin: 06/12/18 14:58 Dose: 250 mls/hr Sodium Chloride (Ns 0.9% 1000 Ml*) 1,000 mls @ 100 mls/hr IV PER RATE [facility] Stop: 06/13/18 18:18 Last Admin: 06/12/18 21:03 Dose: 100 mls/hr Lidocaine (Lidoderm 5% Patch*) 1 patch TRANSDERM DAILY [facility] Last Admin: 06/13/18 07:47 Dose: Not Given Magnesium Hydroxide (Milk Of Magnesia Liq*) 30 ml PO Q4H PRN PRN Reason: CONSTIPATION Magnesium Oxide (Magox 400 Tab*) 400 mg PO DAILY [facility] Last Admin: 06/13/18 07:55 Dose: 400 mg Nicotine (Nicotine Patch 21 Mg/24 Hr*) 1 patch TRANSDERM DAILY [facility] Last Admin: 06/13/18 07:56 Dose: 1 patch Omeprazole (Prilosec Cap*) 20 mg PO DAILY PRN PRN Reason: HEARTBURN Ondansetron HCl (Zofran Tab*) 4 mg PO Q6H PRN PRN Reason: NAUSEA Last Admin: 06/12/18 20:29 Dose: 4 mg Oxybutynin Chloride (Ditropan Tab*) 2.5 mg PO BID [facility] Last Admin: 06/13/18 07:53 Dose: 2.5 mg Pharmacy Profile Note (Nicotine Patch Removal Note*) 1 note PATCH OFF 2100 [facility] Last Admin: 06/12/18 20:30 Dose: 1 note Pharmacy Profile Note (Lidocaine Patch Remove*) 1 note PATCH OFF 2100 [facility] Last Admin: 06/12/18 20:30 Dose: Not Given Phenyleph/Shark Oil/Min Oil/Petrol (Preparation H*) 1 applic [place] TID PRN PRN Reason: RECTAL HEMORRHOIDS Last Admin: 06/13/18 12:55 Dose: 1 applic Prednisone (Deltasone Tab*) 50 mg PO DAILY [facility] Last Admin: 06/13/18 07:55 Dose: 50 mg Rivaroxaban (Xarelto(*)) 20 mg PO DAILY [facility] Last Admin: 06/13/18 07:55 Dose: 20 mg Vital Signs - 8 hr 06/13/18 06/13/18 06/13/18 07:40 07:51 07:58 Temperature 97.8 F Pulse Rate 68 61 Respiratory 16 Rate Blood Pressure 122/78 138/30 126/66 (mmHg) O2 Sat by Pulse 94 Oximetry 06/13/18 06/13/18 06/13/18 08:00 08:20 10:58 Temperature 99.0 F Pulse Rate 68 Respiratory 18 18 Rate Blood Pressure 142/53 (mmHg) O2 Sat by Pulse 94 95 Oximetry 06/13/18 13:55 Temperature Pulse Rate Respiratory Rate Blood Pressure (mmHg) O2 Sat by Pulse 96 Oximetry Oxygen Devices in Use Now: None Result Diagrams: 06/13/18 06:15 06/13/18 06:15 Microbiology and Other Data: Microbiology 06/11/18 12:12 Aerobic Blood Culture - Preliminary Blood Venous No Growth Day 1 Anaerobic Blood Culture - Preliminary No Growth Day 1 06/11/18 12:11 Aerobic Blood Culture - Preliminary Blood Venous No Growth Day 1 Anaerobic Blood Culture - Preliminary No Growth Day 1 06/12/18 08:31 Gram Stain - Final Sputum 06/11/18 17:38 Legionella Urinary Antigen - Final Urine Negative Legionella Antigen Streptococcus pneumoniae Ag Screen - Final Negative S. pneumo Antigen 06/11/18 15:20 Influenza Types A,B Antigen - Final Nasopharyngeal Specimen received for Influenza A/B Molecular testing Assess/Plan/Problems-Billing Assessment: - Patient Problems (1) Sepsis due to pneumonia Current Visit: Yes Status: Acute Code(s): J18.9 - PNEUMONIA, UNSPECIFIED ORGANISM; A41.9 - SEPSIS, UNSPECIFIED ORGANISM SNOMED Code(s): 69064292 Comment: -Continue Rocephin and Azithromycin -Sepsis appears resolved and likely other factors driving increasing lactic acid level (from previous trend described)---please see discussion below -Start tapering Prednisone by AM -Urine Ag test for Legionella and S. pneumo (-) -Blood Cx (-) x2 days (2) Lactic acid blood increased Current Visit: Yes Status: Acute Code(s): R79.89 - OTHER SPECIFIED ABNORMAL FINDINGS OF BLOOD CHEMISTRY SNOMED Code(s): 2976180 Comment: -Despite improvement of sepsis, lactic acid continues to climbdoubt that most of its elevation is due to sepsis as pt appears clinically improved and currently hemodynamically stable without any respiratory distress -On review of past data, pt has had what appears to be chronic elevation of lactic acid and maybe related to the fact that pt has had history of multiple myeloma, now thought to be in remission -Pt mentioned she just F/U at Dr. Sosa office 2 weeks [employer] and was told that everything was fine -D/W Dr. Dempsey this AM and confirmed that based on latest urine globulins and eval, pt remains to be on remission -Unclear cause of elevated lactic acid (3) Multiple myeloma Current Visit: Yes Status: Acute Code(s): C90.00 - MULTIPLE MYELOMA NOT HAVING ACHIEVED REMISSION SNOMED Code(s): 026074074 Comment: -Thought to be in remission from last Heme/Onc F/U described above -Off of Revlimid while PNA w/mild sepsis being treated will continue to hold -Resume Revlimid until PNA is fully treated per Dr. Dempsey (4) COPD (chronic obstructive pulmonary disease) Current Visit: Yes Status: Acute Code(s): J44.9 - CHRONIC OBSTRUCTIVE PULMONARY DISEASE, UNSPECIFIED SNOMED Code(s): 17737398 Comment: -Not in acute exacerbation at this time -Continue current nebulization treatment (5) Hx pulmonary embolism Current Visit: Yes Status: Acute Code(s): Z86.711 - PERSONAL HISTORY OF PULMONARY EMBOLISM SNOMED Code(s): 699676710 Comment: -Continue Xarelto (6) Tobacco abuse Current Visit: No Status: Chronic Priority: Medium Code(s): Z72.0 - TOBACCO USE SNOMED Code(s): 955611622 Comment: -Advised lifestyle modifications -Continue Nicotine patch (7) DVT prophylaxis Current Visit: No Status: Acute Priority: Medium Onset Date: 08/23/14 Code(s): FQM3582 - SNOMED Code(s): 657031624 Comment: -On Xarelto Status and Disposition: -Nursing staff mentioned pt was a bit unsteady in gait -Will continue to observe and wait for PT eval
[2018-06-13] MEDS: Azithromycin IV(*) 500 MG in NS 0.9% 250 ML* 250 ML IVPB SCH (15:16)
[2018-06-13] MEDS: cefTRIAXone(*) 1 GM in NS 0.9% 50 ML* 50 ML IVPB SCH (16:21)
[2018-06-13] MEDS: Ondansetron TAB* 4 MG PO PRN (16:25)
[2018-06-13] MEDS: Lidocaine Patch REMOVE* 1 NOTE MISC PATCH OFF SCH (22:52)
[2018-06-13] MEDS: Nicotine Patch Removal NOTE PATCH OFF SCH (22:53)
[2018-06-14] MEDS: Acetaminophen TAB* 325 MG PO PRN ×2 (05:59→13:44)
[2018-06-14 07:03] LABS: ABS Basophils 0 10^3/ul (0-0.2); ABS Eosinophils 0.1 10^3/ul (0-0.6); ABS Lymphocytes 1.9 10^3/ul (1.0-4.8); ABS Monocytes 0.6 10^3/ul (0-0.8); ABS Nucleated RBC 0 10^3/ul; Hematocrit 34 % (35-47); Hemoglobin 11.3 g/dl (12.0-16.0); Lymphocyte % 34.3 % (25-47); Mean Corpuscular HGB Conc 33 g/dl (31-36); Mean Corpuscular Hemoglobin 32 pg (27-31); Mean Corpuscular Volume 96 fL (80-97); Mean Platelet Volume 8.5 um3 (7.4-10.4); Nucleated Red Blood Cells % 0.2; Platelet Count 199 10^3/ul (150-450); Red Blood Count 3.57 10^6/ul (4.00-5.40); Red Cell Distribution Width 16 % (10.5-15); White Blood Count 5.5 10^3/ul (3.5-10.8)
[2018-06-14 07:20] LABS: EGFR Non-African American 93.7 (>60)
[2018-06-14] MEDS: predniSONE TAB* 50 MG PO SCH (10:20)
[2018-06-14] MEDS: Oxybutynin TAB* 5 MG PO SCH (10:26)
[2018-06-14] MEDS: Ascorbic Acid TAB* 500 MG PO SCH (10:26)
[2018-06-14] MEDS: Rivaroxaban TAB(*) 20 MG TAB PO SCH (10:27)
[2018-06-14] MEDS: Baclofen TAB* 20 MG PO SCH (10:27)
[2018-06-14] MEDS: Lidocaine PATCH 5%* 1 PATCH TRANSDERM SCH (10:28)
[2018-06-14] MEDS: Nicotine PATCH 21 MG/24 HR* PATCH TRANSDERM SCH (10:28)
[2018-06-14] MEDS: Magnesium Oxide TAB* 400 MG PO SCH (10:28)
[2018-06-14 12:37] VITALS: BP 138/54
[2018-06-14] MEDS: Ondansetron TAB* 4 MG PO PRN (13:45)
--- NOTE | 2018-06-15 04:21 | DS ---
CC: Dr. Ayala; Dr. Kaylin Qureshi; Dr. Janell Gunter * DISCHARGE SUMMARY: DATE OF ADMISSION: DATE OF DISCHARGE: 06/14/18 DISCHARGE DIAGNOSES: 1. Sepsis secondary to pneumonia, sepsis resolved. 2. Lactic acid elevation, incongruent with the level of sepsis, has now normalized; on review of previous hospitalizations and blood draws, the patient has had some chronic elevation of lactic acid; patient is to repeat lactic acid level in 2 weeks. 3. History of multiple myeloma, thought to be on remission. 4. Chronic obstructive pulmonary disease, not in acute exacerbation. 5. History of pulmonary embolism, on Xarelto. 6. Tobacco abuse. DISCHARGE MEDICATIONS: Are as follows: 1. Vitamin C 250 mg p.o. daily. 2. Baclofen 20 mg p.o. b.i.d. 3. Benzonatate capsules 100 mg p.o. t.i.d. p.r.n. 4. Lidocaine patch 5% 1 patch transdermally daily. 5. Nicotine patch 21 mg/24 hour period daily. 6. Omeprazole 20 mg p.o. daily. 7. Ondansetron 4 mg p.o. q.6 p.r.n. 8. Oxybutynin 2.5 mg p.o. b.i.d. 9. Xarelto 20 mg p.o. daily. 10. Albuterol nebulization 2.5 mg inhalation q.4 p.r.n. 11. Dexamethasone 1 mg p.o. Thursday and 1.5 mg p.o. Thursday. 12. Doxycycline 100 mg p.o. b.i.d. for 8 more days. 13. Breo Ellipta 1 puff inhalation daily. 14. Krill oil 500 mg p.o. daily. 15. Clarinex tablet 1 tab p.o. daily for 12 more days. 16. Revlimid 25 mg p.o. q.p.m. - the patient was advised to continue to hold Revlimid until she has done with her antibiotics. 17. Magnesium gluconate 250 mg p.o. b.i.d. 18. Prednisone rapid taper. 19. Zoledronic acid 4 mg IV monthly. HISTORY OF PRESENT ILLNESS/HOSPITAL COURSE: The patient is a 62-year-old lady with a history of COPD, multiple myeloma, thought to be on remission, as well as previous history of PE 4 to 5 years ago, on Xarelto, who presented with a chief complaint of shortness of breath, coughing, and congestion since the day prior to admission. She was then assessed to have sepsis secondary to pneumonia and was placed on a rapid prednisone taper. She is thought unlikely to have any form of PE given she is currently on Xarelto for a previous history of PE due to her multiple myeloma. On admission, she was found to have lactic acid of 2.3 and despite improving sepsis, was found to be increasing. On review of her previous data, previous hospitalization shows her to have abnormal lactic acid than normal and unclear whether this may be due to some form on genetic predisposition to lactic acidosis given no conditions other than sepsis is contributing given Oncology thinks that her multiple myeloma is in remission given she was just recently seen at Dr. Dempsey' s office 2 weeks prior to this admission where her globulin was said to be in the normal limit and hence we will defer. We have advised the patient to redraw her blood work laboratories in 2 weeks when she has completed her course of antibiotics and no longer on antibiotics. She had been advised to follow up and/or call her PCP within 3 days post discharge. She was advised that if her symptoms resume or develop new ones or feel unwell for any reason to call her PCP first and if her PCP cannot entertain her due to scheduling issues alone, she was advised to call [facility] if the issue is considered non-emergent. She was advised to stop smoking and to continue to use her nicotine patch to dampen her craving. She was advised to resume her Revlimid only after she has finished her antibiotic regimen and this was discussed with Dr. Dempsey prior to her discharge. She was advised to call my office regarding any questions, concerns , or further clarifications regarding her discharge plans and/or prescription and to take her medications as prescribed. The patient had an ambulatory saturation just prior to her discharge and it is determined that she does not need any additional oxygen supplementation. REVIEW OF SYSTEMS: She denied any recent headaches, dizziness, fevers, chills, nausea, vomiting, chest pain, shortness of breath, increased cough nor sputum production, abdominal pain, diarrhea, constipation, pain and/or increased frequency on urination, myalgias, arthralgias, throat pain, or new skin lesions. The rest of the 14-point review of systems are otherwise unremarkable. PHYSICAL EXAMINATION: Reveals the most recent vital signs of records with blood pressure of 138/54, 97.9 degrees Fahrenheit, 58 beats per minute heart rate, 18 per minute respiratory rate, saturating at 97% on room air. General Appearance: The patient is awake, alert, and oriented, not in acute distress, obese. HEENT: Normocephalic, atraumatic. PERRLA. Extraocular muscles intact. Negative for icterus. Moist oral mucosa. Negative throat erythema. Neck is soft, supple, with no cervical lymphadenopathy. No JVD. Heart: S1, S2 within normal limits. Regular rate and rhythm. No murmurs, rubs, and gallops. Chest: Clear to auscultation bilaterally. Good air entry. No wheezes, rales, or rhonchi. Abdomen is soft, nondistended, nontender. Normoactive bowel sounds x4 quadrants. Extremities: No cyanosis, clubbing, or edema. Psychiatric: No active psychosis, depression, suicidal or homicidal ideations. Skin is warm to touch. TIME SPENT: The total time spent evaluating the patient, reviewing pertinent data, and appropriate documentation is 50 minutes. [id number] #: [id number] MTDD
== END 2018-06-14 14:50 | disposition home or self-care (01) | DRG 720 ==
LOC: ED 10:12 → MED 14:33
PROVIDERS: ADMIT Internal Medicine; ATTEND Student in an Organized Health Care Education/Training Program
DX: A41.9 Sepsis, unspecified organism (principal); J18.9 Pneumonia, unspecified organism; E87.2 Acidosis; Z68.41 Body mass index [BMI] 40.0-44.9, adult; C90.01 Multiple myeloma in remission; J44.9 Chronic obstructive pulmonary disease, unspecified; F17.210 Nicotine dependence, cigarettes, uncomplicated; E66.9 Obesity, unspecified; Z86.711 Personal history of pulmonary embolism; Z79.01 Long term (current) use of anticoagulants; Z79.899 Other long term (current) drug therapy; Z88.2 Allergy status to sulfonamides; Z88.8 Allergy status to other drugs, medicaments and biological substances; Z88.1 Allergy status to other antibiotic agents; Z91.041 Radiographic dye allergy status; Z80.1 Family history of malignant neoplasm of trachea, bronchus and lung
CPT/HCPCS: 36415; 71046; 80048; 80053; 81003; 83605; 83735; 83880; 84100; 84484; 85025; 85610; 85730; 86140; 87040; 87070; 87205; 87899; 96365; 96375; 99283; A9270-GY; J0456; J0696; J1100; J7512

== ENCOUNTER 2019-05-24 10:07 | Emergency (ER) | payer SELFPAY ==
[2019-05-24] MEDS ORDERED: NS 0.9% 1000 ML** 1,000 ML IV ONE (10:21)
--- NOTE | 2019-05-24 10:34 | ED ---
Respiratory - HPI Summary HPI Summary: 63 year old F [place] [facility] accompanied by complains of productive cough and shortness of breath since yesterday 05/23/19 evening. She reports fatigue. She denies fever, pain in her bilateral calves. Patient states she has an inhaler which she did not use [employer]. states he was seen at [facility] yesterday and was diagnosed with pneumonia. Patient additionally complains of left elbow swelling. Patient ambulates with a cane. The patient rates the pain 4/10 in severity per nurse triage note but pt denies pain to Dr. Salas. Symptoms aggravated by nothing. Symptoms alleviated by nothing. Patient is immunosuppressed due to chemotherapy for multiple myeloma. states patient has had multiple myeloma for the last 4-5 years (2013- 2014). Her oncologist is Dr. Dempsey whom patient states she sees every 3 months. Patient states she receives at home chemotherapy, Revlimid. Her primary care provider is Dr. Gunter. Patient has not received her influenza vaccination yet, and plans to get it in a few weeks when she sees Dr. Dempsey. PMHx: COPD for which she does not wear at home oxygen. Denies PMHx [place] and atrial fibrillation. Takes Xarelto. Surgical Hx: back surgery. FHx: mother from lung cancer. Patient smokes cigarettes, denies drinking alcohol, and uses oral CBD oil for inflammation at home. Vital signs at triage: HR 86 BPM, BP 137/84, O2 sat 96% Home Medications Medication Instructions Recorded Confirmed Type Albuterol 2.5MG/3ML (0.083%)* 2.5 mg INH Q4H PRN 06/11/18 05/24/19 History [Ventolin 2.5 MG/3 ML NEB.DAMION*] Ascorbic Acid TAB* [Vitamin C 250 mg PO DAILY 06/11/18 05/24/19 History TAB*] Baclofen TAB* [Lioresal TAB*] 20 mg PO BID 06/11/18 05/24/19 History Dexamethasone TAB* [Decadron TAB*] 1 mg PO TU 06/11/18 05/24/19 History Dexamethasone TAB* [Decadron TAB*] 1.5 mg PO MO 06/11/18 05/24/19 History Fluticasone/Vilanterol MDI(NF) 1 puff INH DAILY 06/11/18 05/24/19 History [Breo Ellipta MDI 200/25(NF)] Krill Oil 500 mg PO DAILY 06/11/18 05/24/19 History Lenalidomide (NF) [Revlimid (NF)] 25 mg PO QPM 06/11/18 05/24/19 History Magnesium Gluconate 250 mg PO BEDTIME 06/11/18 05/24/19 History Nicotine PATCH 21 MG/24 HR* 21 mg TRANSDERM DAILY 06/11/18 05/24/19 History Omeprazole CAP (NF) [Prilosec CAP* 20 mg PO DAILY PRN 06/11/18 05/24/19 History 20 MG] Ondansetron TAB* [Zofran 4 MG Tab*] 4 mg PO Q6H PRN 06/11/18 05/24/19 History Oxybutynin TAB* [Ditropan TAB*] 2.5 mg PO BID 06/11/18 05/24/19 History Rivaroxaban TAB(*) [Xarelto 20 mg] 20 mg PO BEDTIME 06/11/18 05/24/19 History Zoledronic Acid* [Zometa*] 4 mg IV .Q 3 MONTHS 06/11/18 05/24/19 History Albuterol HFA INHALER* [Ventolin 2 puff INH Q4H PRN 05/24/19 05/24/19 History HFA Inhaler*] Ciprofloxacin TAB* [Cipro 500 MG 500 mg PO BID 05/24/19 05/24/19 History TAB*] Furosemide TAB* [Lasix TAB*] 20 mg PO DAILY 05/24/19 05/24/19 History Mupirocin 2% OINT* [Bactroban 2 % 1 applic TOPICAL BID 05/24/19 05/24/19 History Oint*] - History of Current Complaint Chief Complaint: EDShortnessOfBreath Hx Obtained From: Patient, Family/Paralegal Specialist - Onset/Duration: Lasting Hours - yesterday 05/23/19 evening, Still Present Timing: Constant Current Severity: Moderate Pain Intensity: 4 - per business editor Character: Cough (Productive) Sputum Amount: Moderate Sputum Color: Yellow Aggravating Factor(s): Nothing Alleviating Factor(s): Nothing Associated Signs and Symptoms: Negative - neg fever, calf pain, SOB - Allergy/Home Medications Allergies/Adverse Reactions: Allergies Allergy/AdvReac Type Severity Reaction Status Date / Time Iodinated Contrast Media Allergy Rash And Verified 06/11/18 10:37 [Iodinated Contrast- Oral Itching and IV Dye] Sulfa (Sulfonamide Allergy Hives Verified 06/11/18 10:37 Antibiotics) warfarin Allergy Rash And Verified 06/11/18 10:37 Itching Home Medications: Home Medications Albuterol HFA INHALER* [Ventolin HFA Inhaler*] 2 puff INH Q4H PRN 05/24/19 [ History Confirmed 05/24/19] Ciprofloxacin TAB* [Cipro 500 MG TAB*] 500 mg PO BID 05/24/19 [History Confirmed 05/24/19] Furosemide TAB* [Lasix TAB*] 20 mg PO DAILY 05/24/19 [History Confirmed 05/24/19 ] Mupirocin 2% OINT* [Bactroban 2 % Oint*] 1 applic TOPICAL BID 05/24/19 [History Confirmed 05/24/19] PMH/Surg Hx/FS Hx/Imm Hx Previously Healthy: No Endocrine/Hematology History: Reports: Hx Bone Marrow Disease - multiple myeloma Denies: Hx Diabetes Cardiovascular History: Reports: Hx Hypercholesterolemia Denies: Hx Hypertension, Hx Pacemaker/ICD Respiratory History: Reports: Hx Chronic Obstructive Pulmonary Disease (COPD) Denies: Hx Asthma, Hx Pulmonary Embolism GI History: Reports: Hx Diverticulosis, Hx Gall Bladder Disease History: Denies: Hx Renal Disease Musculoskeletal History: Reports: Hx Arthritis - left knee, Hx Back Problems - thoracic fusion Sensory History: Reports: Hx Contacts or Glasses Denies: Hx Hearing Aid Opthamlomology History: Reports: Hx Contacts or Glasses Psychiatric History: Denies: Hx Panic Disorder - Cancer History Cancer Type, Location and Year: SPINAL TUMORS REMOVED AT [facility] 2014; multiple myeloma Hx Chemotherapy: Yes Hx Radiation Therapy: No - Surgical History Surgery Procedure, Year, and Place: GALLBLADDER, TUBAL LIGATION,. TUMORS REMOVED FROM SPINE (@ [place]), W/ HONORIO PLACEMENT DUE TO DETERIORATION Infectious Disease History: No Infectious Disease History: Denies: Traveled Outside the [place] in Last 30 Days - Family History Known Family History: Positive: Other - mother from lung cancer - Social History Lives: With Family Alcohol Use: None Substance Use Type: Reports: None Hx Tobacco Use: Yes Smoking Status (MU): Heavy Every Day Tobacco Smoker Type: Cigarettes Amount Used/How Often: 1 pack/day Have You Smoked in the Last Year: Yes Review of Systems Positive: Fatigue. Negative: Fever Cardiovascular: Negative Positive: Shortness Of Breath, Cough Gastrointestinal: Negative Positive: no symptoms reported Musculoskeletal: Negative - pain in her bilateral calves Positive: Other - left elbow swelling Skin: Negative Neurological: Negative Psychological: Normal All Other Systems Reviewed And Are Negative: Yes Physical Exam - Summary Physical Exam Summary: Appearance: Ill-appearing, no pain distress, obese. Patient ambulates with a cane Skin: Warm, color reflects adequate perfusion, dry, She has a scar on her mid thoracic to lumbar region Head: Normal Head/Face inspection, atraumatic Eyes: Conjunctiva clear ENT: Normal inspection Neck: Supple, no nodes, no JVD Respiratory: Shallow breath sounds throughout, expiratory wheezes throughout, no respiratory distress Cardio: RRR, No murmur, pulses normal, brisk capillary refill Abdomen: Soft, nontender Bowel sounds: Present Musculoskeletal: Strength Intact/ROM intact, no calf tenderness, no edema. Left elbow fluctuance and swelling with no redness Psychological: Normal Neuro: Alert, muscle tone normal, no focal deficit Triage Information Reviewed: Yes Vital Signs On Initial Exam: Initial Vitals Temp Pulse Resp BP Pulse Ox 98.1 F 86 18 137/84 96 05/24/19 10:09 05/24/19 10:09 05/24/19 10:09 05/24/19 10:09 05/24/19 10:09 Vital Signs Reviewed: Yes Procedures - Sedation Patient Received Moderate/Deep Sedation with Procedure: No Diagnostics - Vital Signs Vital Signs Temp Pulse Resp BP Pulse Ox 05/24/19 10:09 98.1 F 86 18 137/84 96 - Laboratory Result Diagrams: 05/24/19 10:45 05/24/19 10:45 Lab Statement: Any lab studies that have been ordered have been reviewed, and results considered in the medical decision making process. - Radiology CXR Radiology Interpretation Completed By: Radiologist Summary of Radiographic Findings: FINDINGS CONSISTENT WITH COPD, NO EVIDENCE FOR ACUTE DISEASE. ED physician has reviewed this report. - EKG 1035 Cardiac Rate: NL - 76 BPM EKG Rhythm: Sinus Rhythm ST Segment: Non-Specific Ectopy: None EKG Comparison: No Significant Change - 09/06/14 Summary of EKG Findings: An EKG at 10:35 reveals sinus rhythm 76 BPM, nml AV/IV CT, nml QTc, and nml axis. No acute changes. Similar to prior EKG on 09/06/14. ED MD has reviewed and interpreted this EKG. Re-Evaluation - Re-Evaluation First Eval Re-Evaluation Time: 12:35 Change: Unchanged Comment: patient has dry cough and feels "lousy". she is willing to go home with treatment Second Eval Re-Evaluation Time: 13:19 Change: Improved Comment: the patient feels fine and is ready for discharge. she understands that she does not have pneumonia and her discharge treatments Disposition - Course Course Of Treatment: 63 year old F presenting to [facility] accompanied by complains of productive cough, shortness of breath, fatigue since yesterday 05/23 evening. Pt has COPD, not O2 dependent, and has multiple myeloma and is immunosuppressed doing chemotherapy. Pt still smokes. Physical exam findings: The patient is ill-appearing, in no pain distress, obese. Patient ambulates with a cane. She has a scar on her mid thoracic to lumbar region. She has shallow breath sounds throughout, expiratory wheezes throughout. She has left elbow fluctuance and swelling with no redness. Patient medications reviewed this visit. Nurses notes reviewed. Allergies noted. High blood pressure noted. Bloodwork results with no significant abnormalities except for MCH 32, RDW 16 , INR 1.16 glucose 123, lactic acid 2.8, calcium 8.5, CRP 8.12, BNP 125. Aware of lactic acid 2.8 at 11:30. Blood cultures ordered. Rapid flu tests negative for Influenza A and Influenza B. An EKG at 10:35 reveals sinus rhythm 76 BPM, nml AV/IV CT, nml QTc, and nml axis. No acute changes. Similar to prior EKG on . CXR shows, per radiologist: FINDINGS CONSISTENT WITH COPD, NO EVIDENCE FOR ACUTE DISEASE. In the ED course, the patient was given albuterol 2.5 mg neb and normal saline fluids 1 L IV. The patient was given another albuterol 2.5 mg neb. She was also given doxycycline 100 mg po, Robitussin with codeine 10 mL PO, and Solu-Medrol 125 mg IV. The patient feels better and is agreeable to go home with treatment. She understands that she does not have pneumonia. Patient will be discharged home with prescription for prednisone taper PO, doxycycline 100 mg twice a day for 10 days, and Robitussin with codeine cough syrup PO. She was advised to use Robitussin with codeine at night for her cough and to continue her nebulized treatments every 4 hours as needed for cough and shortness of breath. She was instructed to follow up from Dr. Gunter, her primary care provider, in 2-3 days. Patient was instructed to return to Emergency Department for new or worsening symptoms. Patient understands and is agreeable to this plan. - Differential Dx - Cardiopulmonary Differential Diagnoses - Cardiopulmonary: Bronchitis, CHF, Exacerbation Of COPD , Lower Resp Infection - Diagnoses Provider Diagnoses: COPD exacerbation, Bronchitis, Elevated lactic acid level, Elevated blood pressure reading without diagnosis of hypertension, Tobacco abuse disorder, Multiple myeloma, Olecranon bursitis of left elbow Discharge ED - Sign-Out/Discharge Documenting (check all that apply): Patient Departure - Discharge - Discharge Plan Condition: Stable Disposition: HOME Prescriptions: DOXYcycline CAP(*) [DOXYcycline 100MG CAP(*)] 100 mg PO BID #20 cap guaiFENesin/CODIEN 100MG-10MG* [Robitussin AC 100Mg-10Mg*] 10 ml PO BEDTIME PRN #50 ml MDD 10ml PRN Reason: Cough predniSONE [Prednisone 5 MG TAB] 10 mg PO DAILY #30 tablet Patient Education Materials: Acute Bronchitis (ED), COPD (Chronic Obstructive Pulmonary Disease) (ED) Referrals: Janell Gunter MD [Primary Care Provider] - 2 Days Additional Instructions: You were evaluated for possible pneumonia and your chest x-ray showed only COPD , no definite pneumonia. Your flu swab was also negative for influenza. You were given 2 albuterol treatments by nebulization while you were in the Emergency Department. You were also given Solu-Medrol 125 mg IV. You were given doxycycline 100 mg to start antibiotics for bronchitis. You will be given an oral prednisone taper that you will start tomorrow with pills. You will also take doxycycline 100 mg twice a day for 10 full days. You were given 1 dose of narcotic cough syrup Robitussin with codeine, and you may use this at night for your cough. Continue your nebulized treatments every 4 hours as needed for cough and shortness of breath. Have definite follow-up with Dr. Tomas Winkler in 2-3 days. Return to the Emergency Department for new or worsening symptoms. - Billing Disposition and Condition Condition: STABLE Disposition: Home - Attestation Statements Document Initiated by Adal: Yes Documenting Scribe: Liza Patel Provider For Whom Scribe is Documenting (Include Credential): Tawny Salas MD Scribe Attestation: Liza Soliz, scribed for Tawny Salas MD on 06/14/19 at 0003. Scribe Documentation Reviewed: Yes Provider Attestation: The documentation as recorded by the Liza olivares accurately reflects the service I personally performed and the decisions made by me, Tawny Salas MD Status of Scribe Document: Viewed
[2019-05-24 11:00] LABS: ABS Eosinophils 0.2 10^3/ul (0-0.6); ABS Lymphocytes 1.2 10^3/ul (1.0-4.8); ABS Monocytes 0.4 10^3/ul (0-0.8); ABS Neutrophils 2.1 10^3/ul (1.5-7.7); Eosinophil % 3.9 %; Hematocrit 39 % (35-47); Hemoglobin 13.4 g/dL (12.0-16.0); Lymphocyte % 31.1 %; Mean Corpuscular HGB Conc 34 g/dL (31-36); Mean Corpuscular Hemoglobin 32 pg (27-31); Mean Corpuscular Volume 94 fL (80-97); Mean Platelet Volume 7.9 fL (7.4-10.4); Nucleated Red Blood Cells % 0.2; Platelet Count 218 10^3/uL (150-450); Red Blood Count 4.14 10^6 /uL (3.70-4.87); Red Cell Distribution Width 16 % (10-15); White Blood Count 3.9 10^3/uL (3.5-10.8)
[2019-05-24 11:07] LABS: Activated Partial Thrombo Time 37.3 seconds (26.0-38.0); INR 1.16 (0.82-1.09)
[2019-05-24] MEDS ORDERED: Albuterol 2.5 MG/3 ML NEB.SOL* (0.083%) INH ONE ×2 (11:07→13:05)
[2019-05-24 11:14] LABS: Albumin 3.9 g/dL (3.2-5.2); Albumin/Globulin Ratio 1.5 (1-3); BUN/Creatinine Ratio 15.4 (8-20); C Reactive Protein 8.12 mg/L (<8.01); Calcium 8.5 mg/dL (8.6-10.3); EGFR Non-African American 91.8 (>60); Globulin 2.6 g/dL (2-4); Potassium 3.6 mmol/L (3.5-5.0); Total Bilirubin 0.4 mg/dL (0.2-1.0); Total Protein 6.5 g/dL (6.4-8.9)
[2019-05-24 11:16] LABS: CKMB ng/mL 2.5 ng/mL (0.6-6.3)
[2019-05-24] MEDS ORDERED: guaiFENesin/CODIENE 100mg/10mg 5 ML UDC PO ONE (13:06)
[2019-05-24] MEDS ORDERED: DOXYcycline CAP(*) 100 MG PO ONE (13:07)
[2019-05-24] MEDS ORDERED: methylPREDNISolone 125 MG* 2 ML VIAL IV ONE (13:08)
[2019-05-24 13:14] LABS: Influenza A Molecular NEGATIVE (Negative); Influenza B Molecular NEGATIVE (Negative)
[2019-05-24 14:19] VITALS: BP 119/63
== END 2019-05-24 14:20 | disposition home or self-care (01) ==
LOC: ED 10:07
DX: J44.1 Chronic obstructive pulmonary disease with (acute) exacerbation (principal); J40 Bronchitis, not specified as acute or chronic; R74.0 Nonspecific elevation of levels of transaminase and lactic acid dehydrogenase [LDH]; R03.0 Elevated blood-pressure reading, without diagnosis of hypertension; F17.210 Nicotine dependence, cigarettes, uncomplicated; Z79.01 Long term (current) use of anticoagulants; Z79.899 Other long term (current) drug therapy; E78.00 Pure hypercholesterolemia, unspecified; Z98.51 Tubal ligation status; Z88.2 Allergy status to sulfonamides; Z88.8 Allergy status to other drugs, medicaments and biological substances; Z91.041 Radiographic dye allergy status
CPT/HCPCS: 36415; 71046; 80053; 82550; 82553; 83605; 83880; 84484; 85025; 85610; 85730; 86140; 87040; 93005; 96361; 96374; 99284; A9270-GY; J2930

== ENCOUNTER 2019-10-15 11:11 | Emergency (ER) | payer MEDICARE, OTHER ==
--- NOTE | 2019-10-15 11:49 | ED ---
GI/ HPI - HPI Summary HPI Summary: This patient is a 64 year old F presenting to [facility] with a chief complaint of hematuria and L flank pain since 10/14/19 Pt describes the blood as very dark in urine, and the intermittent pain in L flank also began yesterday. She reports the pain is debilitating when it occurs. Pt reports no change in frequency in urination, and no pain while urinating. Pt has not had similar symptoms previously. Patient reports nausea. Patient denies fever, chills, diarrhea, and constipation. Pt has PMHx multiple myeloma and has been getting treatment for almost 5 years. There has been no change. Pt also takes Xarelto due to blood clots from medication. Pt smoke cigarettes. Medications reviewed. Allergies noted. - History of Current Complaint Chief Complaint: EDFlankPain Time Seen by Provider: 10/15/19 11:26 Stated Complaint: BLOOD IN URINE PER PT Hx Obtained From: Patient Onset/Duration: Started Hours Ago Timing: Intermittent Severity: Severe Current Severity: None Pain Intensity: 0 Location of Pain: Flank Pain Characteristics: Sharp Associated Signs and Symptoms: Positive: Nausea, Hematuria, Flank Pain. Negative: Diarrhea, Fever, Chills Aggravating Factor(s): Nothing Alleviating Factor(s): Spontaneous Resolution - Additional Pertinent History Primary Care Physician: DASIA - Allergy/Home Medications Allergies/Adverse Reactions: Allergies Allergy/AdvReac Type Severity Reaction Status Date / Time Iodinated Contrast Media Allergy Rash And Verified 10/15/19 11:16 [Iodinated Contrast- Oral Itching and IV Dye] Sulfa (Sulfonamide Allergy Hives Verified 10/15/19 11:16 Antibiotics) warfarin Allergy Rash And Verified 10/15/19 11:16 Itching Home Medications: Home Medications Albuterol 2.5MG/3ML (0.083%)* [Ventolin 2.5 MG/3 ML NEB.DAMION*] 2.5 mg INH Q4H PRN 06/11/18 [History Confirmed 05/24/19] Ascorbic Acid TAB* [Vitamin C TAB*] 250 mg PO DAILY 06/11/18 [History Confirmed 05/24/19] Baclofen TAB* [Lioresal TAB*] 20 mg PO BID 06/11/18 [History Confirmed 05/24/19 ] Dexamethasone TAB* [Decadron TAB*] 1 mg PO TU 06/11/18 [History Confirmed ] Dexamethasone TAB* [Decadron TAB*] 1.5 mg PO MO 06/11/18 [History Confirmed 04/04] Fluticasone/Vilanterol MDI(NF) [Breo Ellipta MDI 200/25(NF)] 1 puff INH DAILY [History Confirmed 05/24/19] Krill Oil 500 mg PO DAILY 06/11/18 [History Confirmed 05/24/19] Lenalidomide (NF) [Revlimid (NF)] 25 mg PO QPM 06/11/18 [History Confirmed 05/24] Magnesium Gluconate 250 mg PO BEDTIME 06/11/18 [History Confirmed 05/24/19] Nicotine PATCH 21 MG/24 HR* 21 mg TRANSDERM DAILY 06/11/18 [History Confirmed ] Omeprazole CAP (NF) [Prilosec CAP* 20 MG] 20 mg PO DAILY PRN 06/11/18 [History Confirmed 05/24/19] Ondansetron TAB* [Zofran 4 MG Tab*] 4 mg PO Q6H PRN 06/11/18 [History Confirmed 05/24/19] Oxybutynin TAB* [Ditropan TAB*] 2.5 mg PO BID 06/11/18 [History Confirmed ] Rivaroxaban TAB(*) [Xarelto 20 mg] 20 mg PO BEDTIME 06/11/18 [History Confirmed 05/24/19] Zoledronic Acid* [Zometa*] 4 mg IV .Q 3 MONTHS 06/11/18 [History Confirmed 05/24] Albuterol HFA INHALER* [Ventolin HFA Inhaler*] 2 puff INH Q4H PRN 05/24/19 [ History Confirmed 05/24/19] Ciprofloxacin TAB* [Cipro 500 MG TAB*] 500 mg PO BID 05/24/19 [History Confirmed 05/24/19] DOXYcycline CAP(*) [DOXYcycline 100MG CAP(*)] 100 mg PO BID #20 cap 05/24/19 [Rx ] Furosemide TAB* [Lasix TAB*] 20 mg PO DAILY 05/24/19 [History Confirmed 05/24/19 ] Mupirocin 2% OINT* [Bactroban 2 % Oint*] 1 applic TOPICAL BID 05/24/19 [History Confirmed 05/24/19] guaiFENesin/CODIENE 100mg/10mg [Robitussin AC 100Mg-10Mg*] 10 ml PO BEDTIME PRN #50 ml MDD 10ml 05/24/19 [Rx] predniSONE [Prednisone 5 MG TAB] 10 mg PO DAILY #30 tablet 05/24/19 [Rx] Cephalexin CAP* [Keflex CAP*] 500 mg PO TID 7 Days #21 cap 10/15/19 [Rx] PMH/Surg Hx/FS Hx/Imm Hx Endocrine/Hematology History: Denies: Hx Diabetes Cardiovascular History: Reports: Hx Hypercholesterolemia, Hx Hypotension Denies: Hx Hypertension, Hx Pacemaker/ICD Respiratory History: Reports: Hx Chronic Obstructive Pulmonary Disease (COPD) Denies: Hx Asthma, Hx Pulmonary Embolism GI History: Reports: Hx Diverticulosis, Hx Gall Bladder Disease History: Denies: Hx Dialysis, Hx Renal Disease Musculoskeletal History: Reports: Hx Arthritis - left knee, Hx Back Problems - thoracic fusion Sensory History: Reports: Hx Contacts or Glasses Denies: Hx Hearing Aid Opthamlomology History: Reports: Hx Contacts or Glasses Psychiatric History: Denies: Hx Panic Disorder - Cancer History Cancer Type, Location and Year: RECENT DIAGNOSIS OF SPINAL TUMORS REMOVED AT [facility] 2013 Hx Chemotherapy: Yes Hx Radiation Therapy: No - Surgical History Surgery Procedure, Year, and Place: GALLBLADDER. TUBAL LIGATION. 2013 TUMORS REMOVED FROM SPINE( @[facility]). 2014 W/HONORIO PLACEMENT DUE TO DETORIATION - WAITING OP REPORT FAX SENT - OP REPORT SCANNED INTO EMR NEED PRE MRI TSP AND LSP LAT/AP XRAYS TO CLEAR - Immunization History Date of Influenza Vaccine: Up to date Infectious Disease History: No Infectious Disease History: Denies: Traveled Outside the [place] in Last 30 Days - Family History Known Family History: Positive: Other - mother from lung cancer - Social History Alcohol Use: None Substance Use Type: Reports: None Hx Tobacco Use: Yes Smoking Status (MU): Heavy Every Day Tobacco Smoker Type: Cigarettes Amount Used/How Often: 1 pack/day Have You Smoked in the Last Year: Yes Review of Systems Negative: Fever, Chills Positive: Nausea. Negative: Diarrhea Positive: hematuria. Negative: frequency, pain All Other Systems Reviewed And Are Negative: Yes Physical Exam - Summary Physical Exam Summary: Constitutional: Well-developed, Well-nourished, Alert. (-) Distressed Skin: Warm, Dry HENT: Normocephalic; Atraumatic Eyes: Conjunctiva normal Neck: Musculoskeletal ROM normal neck. (-) JVD, (-) Stridor, (-) Tracheal deviation Cardio: Rhythm regular, rate normal, Heart sounds normal; Intact distal pulses; Radial pulses are 2+ and symmetric. (-) Murmur Pulmonary/Chest wall: Effort normal. (-) Respiratory distress, (-) Wheezes, (-) Rales Abd: Soft, (-) tenderness, (-) Distension, (-) Guarding, (-) Rebound Musculoskeletal: (-) Edema Lymph: (-) Cervical adenopathy Neuro: Alert, Oriented x3 Psych: Mood and affect Normal Triage Information Reviewed: Yes Vital Signs On Initial Exam: Initial Vitals Temp Pulse Resp BP Pulse Ox 98.2 F 98 20 166/84 96 10/15/19 11:14 10/15/19 11:14 10/15/19 11:14 10/15/19 11:14 10/15/19 11:14 Vital Signs Reviewed: Yes Procedures - Sedation Patient Received Moderate/Deep Sedation with Procedure: No Diagnostics - Vital Signs Vital Signs Temp Pulse Resp BP Pulse Ox 10/15/19 11:14 98.2 F 98 20 166/84 96 - Laboratory Result Diagrams: 10/15/19 12:07 10/15/19 12:07 Lab Statement: Any lab studies that have been ordered have been reviewed, and results considered in the medical decision making process. - CT Abdomen/Pelvis CT CT Interpretation Completed By: Radiologist Summary of CT Findings: Abdomen/Pelvis CT reveals, per radiologist IMPRESSION: 1. There is a 4 mm calcification in the lower pole collecting system of the left kidney as. well as a punctate calcification in the dependent portion of the urinary bladder, but. there is no definite hydronephrosis or renal stones identified in either ureter. 2. In the dependent portion of the left upper lobe lingula is a 5 mm subpleural nodule. Round atelectasis is favored, but a malignant pulmonary nodule is not completely excluded. Follow-up imaging can be acquired according to the Fleischner Society criteria noted at. the end of this report. 3. Likely hepatic steatosis. 4. There are additional chronic, degenerative and iatrogenic findings described in the. body of the report. ED physician has reviewed this radiology report. Re-Evaluation - Re-Evaluation First Eval Re-Evaluation Time: 01:34 Comment: Discussed results and plan of care with pt GIGU Course/Dx - Course Course Of Treatment: Patient is here with periodic left flank pain and hematuria. Patient is on Xarelto for blood clots. Patient does have hematuria and leuk esterase in her UA. Patient had a CT scan to evaluate for kidney stone and had to stones in her kidney but nothing that would explain her symptoms. Patient was started on antibiotics given her UA. Patient follow-up with her primary care doctor to make sure her urine clears. Patient also made aware of the lung mass seen on CT and the need to follow-up with her oncologist. - Diagnoses Provider Diagnoses: Hematuria Discharge ED - Sign-Out/Discharge Documenting (check all that apply): Patient Departure - Discharge - Discharge Plan Condition: Stable Disposition: HOME Prescriptions: Cephalexin CAP* [Keflex CAP*] 500 mg PO TID 7 Days #21 cap Patient Education Materials: Hematuria (ED) Referrals: Janell Gunter MD [Primary Care Provider] - 1 Week Additional Instructions: follow up with primary care doctor in one week to make sure symptoms are clearing. You do have a lung nodule that needs to be evaluated by your cancer doctor. Come back to the ED for fever, chills, feeling like you are going to pass out, or any other symptoms. - Billing Disposition and Condition Condition: STABLE Disposition: Home - Attestation Statements Document Initiated by Bobbyibe: Yes Documenting Scribe: Xenia Castañeda Provider For Whom Adal is Documenting (Include Credential): Abdiel Gutierrez MD Scribe Attestation: Xenia Soliz, scribed for Abdiel Gutierrez MD on 10/15/19 at 1439. Scribe Documentation Reviewed: Yes Provider Attestation: The documentation as recorded by the Xenia olivares accurately reflects the service I personally performed and the decisions made by me, Abdiel Gutierrez MD Status of Scribe Document: Viewed
[2019-10-15 12:16] LABS: ABS Eosinophils 0.3 10^3/ul (0-0.6); ABS Lymphocytes 1.1 10^3/ul (1.0-4.8); ABS Monocytes 0.3 10^3/ul (0-0.8); ABS Neutrophils 2.2 10^3/ul (1.5-7.7); Eosinophil % 7.3 %; Hematocrit 39 % (35-47); Hemoglobin 13.4 g/dL (12.0-16.0); Lymphocyte % 27.6 %; Mean Corpuscular HGB Conc 34 g/dL (31-36); Mean Corpuscular Hemoglobin 33 pg (27-31); Mean Corpuscular Volume 96 fL (80-97); Mean Platelet Volume 8.4 fL (7.4-10.4); Nucleated Red Blood Cells % 0.1; Platelet Count 160 10^3/uL (150-450); Red Blood Count 4.09 10^6 /uL (3.70-4.87); Red Cell Distribution Width 16 % (10-15)
[2019-10-15 12:33] LABS: BUN/Creatinine Ratio 14.1 (8-20); Calcium 9.2 mg/dL (8.6-10.3); EGFR Non-African American 82.6 (>60); Potassium 3.6 mmol/L (3.5-5.0)
[2019-10-15 12:47] LABS: Urine Appearance Cloudy; Urine Bacteria Absent (Absent); Urine Bilirubin Negative (Negative); Urine Blood 3+ (Negative); Urine Glucose Negative (Negative); Urine Ketones Negative (Negative); Urine Nitrite Negative (Negative); Urine Protein 2+(100 mg/dL) (Negative); Urine Red Blood Cell 3+(>10/hpf) (Absent); Urine Specific Gravity 1.006 (1.010-1.030); Urine Squamous Epithelial Cell Present (Absent); Urine Urobilinogen Negative (Negative); Urine White Blood Cell 1+(6-10/hpf) (Absent)
[2019-10-15 12:48] LABS: Urine Color Amber
[2019-10-15 14:07] VITALS: BP 166/82
== END 2019-10-15 14:05 | disposition home or self-care (01) ==
LOC: ED 11:11
DX: R31.9 Hematuria, unspecified (principal); R11.0 Nausea; R10.84 Generalized abdominal pain; E78.00 Pure hypercholesterolemia, unspecified; I95.9 Hypotension, unspecified; Z79.51 Long term (current) use of inhaled steroids; Z79.899 Other long term (current) drug therapy; F17.210 Nicotine dependence, cigarettes, uncomplicated; Z79.52 Long term (current) use of systemic steroids; Z88.2 Allergy status to sulfonamides; Z88.3 Allergy status to other anti-infective agents
CPT/HCPCS: 36415; 74176; 80048; 81003; 81015; 85025; 87077; 87086; 87186; 99283

== ENCOUNTER 2021-04-07 07:36 | Observation (INO) ==
[2021-04-07 10:05] LABS: Hematocrit 34 % (35-47); Hemoglobin 11.7 g/dL (12.0-16.0); Mean Corpuscular HGB Conc 35 g/dL (31-36); Mean Corpuscular Hemoglobin 35 pg (27-31); Mean Corpuscular Volume 100 fL (80-97); Mean Platelet Volume 8.2 fL (7.4-10.4); Platelet Count 125 10^3/uL (150-450); Red Blood Count 3.33 10^6 /uL (3.70-4.87); Red Cell Distribution Width 17 % (10-15); White Blood Count 0.9 10^3/uL (3.5-10.8)
[2021-04-07 10:13] LABS: INR 1.57 (0.86-1.15)
[2021-04-07 10:21] LABS: Albumin 3.7 g/dL (3.2-5.2); Albumin/Globulin Ratio 1.8 (1-3); Calcium 8.2 mg/dL (8.6-10.3); EGFR African American 104.7 (>60); EGFR Non-African American 86.6 (>60); Globulin 2.1 g/dL (2-4); Potassium 3.1 mmol/L (3.5-5.0); Total Bilirubin 0.7 mg/dL (0.2-1.0); Total Protein 5.8 g/dL (6.4-8.9)
[2021-04-07] MEDS ORDERED: Albuterol 2.5mg/3 ml (0.083%) NEB.SOLN INH PRN (10:23)
[2021-04-07] MEDS ORDERED: Potassium Chloride LIQUID 20 MEQ/15 ML LIQUID PO ONE (10:33)
[2021-04-07 10:34] LABS: ABS Lymphocytes 0.6 10^3/ul (1.0-4.8); ABS Monocytes 0.3 10^3/ul (0-0.8); ABS Neutrophils 0.1 10^3/ul (1.5-7.7); Eosinophil % 1.9 %
[2021-04-08 07:39] LABS: Hematocrit 33 % (35-47); Hemoglobin 11.4 g/dL (12.0-16.0); Mean Corpuscular HGB Conc 35 g/dL (31-36); Mean Corpuscular Hemoglobin 36 pg (27-31); Mean Corpuscular Volume 102 fL (80-97); Mean Platelet Volume 8.6 fL (7.4-10.4); Platelet Count 115 10^3/uL (150-450); Red Blood Count 3.23 10^6 /uL (3.70-4.87); Red Cell Distribution Width 17 % (10-15); White Blood Count 0.8 10^3/uL (3.5-10.8)
[2021-04-08 07:47] LABS: Calcium 8.3 mg/dL (8.6-10.3); EGFR African American 116.5 (>60); EGFR Non-African American 96.3 (>60); Potassium 3.6 mmol/L (3.5-5.0)
[2021-04-08 08:39] LABS: ABS Eosinophils 0.1 10^3/ul (0-0.6); ABS Lymphocytes 0.5 10^3/ul (1.0-4.8); ABS Monocytes 0.2 10^3/ul (0-0.8); ABS Neutrophils 0.1 10^3/ul (1.5-7.7); Eosinophil % 7.4 %
[2021-04-08] MEDS ORDERED: Mometasone/Formoter 200/5 MDI INH SCH (09:00)
[2021-04-08 11:40] VITALS: BP 99/44
== END 2021-04-08 13:44 | disposition home or self-care (01) ==
LOC: MEDTELE 07:36 → ED 07:36 → MEDTELE 13:22
PROVIDERS: ADMIT Hospitalist; ATTEND Hospitalist

== ENCOUNTER 2021-04-11 13:42 | Inpatient (IN) ==
[2021-04-11] MEDS ORDERED: Piperacillin/Tazobac ADVAN 3.375 GM in NS 0.9% 100 ml BAG 100 ML IV ONE ×2 (14:16→17:06)
[2021-04-11 15:17] LABS: Hematocrit 36 % (35-47); Hemoglobin 12.3 g/dL (12.0-16.0); Mean Corpuscular HGB Conc 34 g/dL (31-36); Mean Corpuscular Hemoglobin 35 pg (27-31); Mean Corpuscular Volume 103 fL (80-97); Mean Platelet Volume 8.2 fL (7.4-10.4); Platelet Count 207 10^3/uL (150-450); Red Blood Count 3.55 10^6 /uL (3.70-4.87); Red Cell Distribution Width 17 % (10-15); White Blood Count 0.9 10^3/uL (3.5-10.8)
[2021-04-11 15:27] LABS: Activated Partial Thrombo Time 28.6 seconds (26.0-38.0); INR 1.36 (0.86-1.15)
[2021-04-11 15:31] LABS: ABS Neutrophils 0.2 10^3/ul (1.5-7.7); Albumin/Globulin Ratio 1.4 (1-3); C Reactive Protein 126.97 mg/L (<8.01); Calcium 9.7 mg/dL (8.6-10.3); EGFR African American 99.7 (>60); EGFR Non-African American 82.4 (>60); Globulin 2.9 g/dL (2-4); Potassium 3.7 mmol/L (3.5-5.0); Total Bilirubin 0.6 mg/dL (0.2-1.0); Total Protein 6.9 g/dL (6.4-8.9); Troponin I 0.01 ng/mL (<0.03)
[2021-04-11 16:26] LABS: ABS Lymphocytes 0.3 10^3/ul (1.0-4.8); ABS Monocytes 0.4 10^3/ul (0-0.8); Eosinophil % 1.6 %; Nucleated Red Blood Cells % 0.2
[2021-04-11] MEDS ORDERED: Ondansetron 4 mg VIAL 2 MG/ML 2 ml VIAL IV PRN (17:01)
[2021-04-11] MEDS ORDERED: Albuterol 2.5mg/3 ml (0.083%) NEB.SOLN INH PRN (17:08)
[2021-04-11] MEDS ORDERED: Dexamethasone IV 4 MG/ML VIAL 1 ml VIAL IV SLOW PU ONE (17:22)
[2021-04-11] MEDS ORDERED: Zosyn per Pharmacy NOTE FOLLOW UP SCH (18:00)
[2021-04-11] MEDS: Mupirocin 2% OINT TUBE TOPICAL SCH (20:30)
[2021-04-11] MEDS: ZOSYN 3.375 GM Q8H per EXTENDED INFUSION IV SCH (20:33)
[2021-04-11] MEDS: Mometasone/Formoter 200/5 MDI INH SCH (20:36)
[2021-04-11] MEDS: MAGNESIUM GLUCONATE 30 MG PO SCH (22:06)
[2021-04-11] MEDS: NS 0.9% 1000 ml BAG 1,000 ML IV SCH (22:34)
[2021-04-11 23:21] LABS: Urine Appearance Cloudy; Urine Bilirubin Negative (Negative); Urine Blood 2+ (Negative); Urine Color Amber; Urine Glucose 1+(50 mg/dL) (Negative); Urine Ketones Negative (Negative); Urine Nitrite Negative (Negative); Urine Protein 1+(30 mg/dL) (Negative); Urine Specific Gravity 1.019 (1.002-1.030); Urine Urobilinogen Negative (Negative)
[2021-04-11 23:33] LABS: Urine Bacteria 1+ (Absent); Urine Red Blood Cell Trace(0-2/hpf) (Absent); Urine Squamous Epithelial Cell Present (Absent); Urine White Blood Cell Trace(0-5/hpf) (Absent)
[2021-04-12 03:48] LABS: Hematocrit 28 % (35-47); Hemoglobin 9.5 g/dL (12.0-16.0); Mean Corpuscular HGB Conc 34 g/dL (31-36); Mean Corpuscular Hemoglobin 35 pg (27-31); Mean Corpuscular Volume 102 fL (80-97); Mean Platelet Volume 8.4 fL (7.4-10.4); Platelet Count 149 10^3/uL (150-450); Red Blood Count 2.73 10^6 /uL (3.70-4.87); Red Cell Distribution Width 17 % (10-15); White Blood Count 1.4 10^3/uL (3.5-10.8)
[2021-04-12 03:54] LABS: ABS Lymphocytes 0.4 10^3/ul (1.0-4.8); ABS Monocytes 0.6 10^3/ul (0-0.8); ABS Neutrophils 0.4 10^3/ul (1.5-7.7); Eosinophil % 0.3 %; Lymphocyte % 26.4 %; Nucleated Red Blood Cells % 0.3
[2021-04-12 04:01] LABS: Albumin 3.2 g/dL (3.2-5.2); Calcium 8.3 mg/dL (8.6-10.3); Total Bilirubin 0.5 mg/dL (0.2-1.0)
[2021-04-12 04:07] LABS: Albumin/Globulin Ratio 1.4 (1-3); EGFR African American 88.1 (>60); EGFR Non-African American 72.8 (>60); Globulin 2.3 g/dL (2-4); Total Protein 5.5 g/dL (6.4-8.9)
[2021-04-12] MEDS: ZOSYN 3.375 GM Q8H per EXTENDED INFUSION IV SCH ×3 (04:33→20:46)
[2021-04-12 04:37] LABS: RBC Morphology Normal (Normal)
[2021-04-12] MEDS: Mometasone/Formoter 200/5 MDI INH SCH ×3 (06:53→19:15)
[2021-04-12] MEDS: Nicotine PATCH 21 MG/24 HR PATCH TRANSDERM SCH (08:00)
[2021-04-12] MEDS: NS 0.9% 1000 ml BAG 1,000 ML IV SCH ×2 (09:23→22:18)
[2021-04-12] MEDS: Mupirocin 2% OINT TUBE TOPICAL SCH ×2 (10:54→20:49)
[2021-04-12] MEDS: Albuterol HFA INHALER 8 gm MDI INH PRN ×2 (12:30→15:57)
[2021-04-12] MEDS ORDERED: Gadoteridol (CONTRAST) 279.3 MG/ML 10 ML IV ONE (19:23)
[2021-04-12] MEDS: MAGNESIUM GLUCONATE 30 MG PO SCH (20:49)
[2021-04-13] MEDS: ZOSYN 3.375 GM Q8H per EXTENDED INFUSION IV SCH ×3 (04:10→19:38)
[2021-04-13] MEDS: Mometasone/Formoter 200/5 MDI INH SCH ×2 (07:41→20:44)
[2021-04-13 08:38] LABS: Hematocrit 28 % (35-47); Hemoglobin 9.7 g/dL (12.0-16.0); Mean Corpuscular HGB Conc 35 g/dL (31-36); Mean Corpuscular Hemoglobin 35 pg (27-31); Mean Corpuscular Volume 101 fL (80-97); Mean Platelet Volume 8.6 fL (7.4-10.4); Platelet Count 160 10^3/uL (150-450); Red Blood Count 2.74 10^6 /uL (3.70-4.87); Red Cell Distribution Width 17 % (10-15); White Blood Count 1.6 10^3/uL (3.5-10.8)
[2021-04-13 08:46] LABS: ABS Lymphocytes 0.6 10^3/ul (1.0-4.8); ABS Monocytes 0.3 10^3/ul (0-0.8); ABS Neutrophils 0.7 10^3/ul (1.5-7.7); Eosinophil % 1.4 %; Lymphocyte % 38.3 %; Nucleated Red Blood Cells % 0.3
[2021-04-13 08:56] LABS: Albumin 3.1 g/dL (3.2-5.2); Albumin/Globulin Ratio 1.2 (1-3); Calcium 8.3 mg/dL (8.6-10.3); EGFR African American 133.8 (>60); EGFR Non-African American 110.6 (>60); Globulin 2.6 g/dL (2-4); Potassium 4.1 mmol/L (3.5-5.0); Total Bilirubin 0.3 mg/dL (0.2-1.0); Total Protein 5.7 g/dL (6.4-8.9)
[2021-04-13] MEDS: Nicotine PATCH 21 MG/24 HR PATCH TRANSDERM SCH (09:09)
[2021-04-13] MEDS: Mupirocin 2% OINT TUBE TOPICAL SCH ×2 (09:14→20:50)
[2021-04-13] MEDS: NS 0.9% 1000 ml BAG 1,000 ML IV SCH ×2 (09:19→19:40)
[2021-04-13] MEDS ORDERED: NS 0.9% 500 ml BAG 500 ML IV ONE (09:56)
[2021-04-13 10:16] LABS: Magnesium 1.9 mg/dL (1.9-2.7)
[2021-04-13] MEDS ORDERED: NS 0.9% 1000 ml BAG 1,000 ML IV ONE (10:43)
[2021-04-13] MEDS: MAGNESIUM GLUCONATE 30 MG PO SCH (19:38)
[2021-04-14] MEDS: NS 0.9% 1000 ml BAG 1,000 ML IV SCH (05:50)
[2021-04-14] MEDS: ZOSYN 3.375 GM Q8H per EXTENDED INFUSION IV SCH ×3 (05:51→19:58)
[2021-04-14] MEDS: Mometasone/Formoter 200/5 MDI INH SCH ×2 (07:40→19:48)
[2021-04-14] MEDS: Nicotine PATCH 21 MG/24 HR PATCH TRANSDERM SCH (09:13)
[2021-04-14] MEDS: Mupirocin 2% OINT TUBE TOPICAL SCH ×2 (09:18→20:33)
[2021-04-14 09:24] LABS: Hematocrit 31 % (35-47); Hemoglobin 10.3 g/dL (12.0-16.0); Mean Corpuscular HGB Conc 33 g/dL (31-36); Mean Corpuscular Hemoglobin 34 pg (27-31); Mean Corpuscular Volume 103 fL (80-97); Mean Platelet Volume 8.6 fL (7.4-10.4); Platelet Count 213 10^3/uL (150-450); Red Blood Count 3.04 10^6 /uL (3.70-4.87); Red Cell Distribution Width 17 % (10-15); White Blood Count 1.6 10^3/uL (3.5-10.8)
[2021-04-14 09:37] LABS: Albumin 3.3 g/dL (3.2-5.2); Albumin/Globulin Ratio 1.3 (1-3); Calcium 8.3 mg/dL (8.6-10.3); EGFR African American 136.7 (>60); Globulin 2.6 g/dL (2-4); Total Bilirubin 0.3 mg/dL (0.2-1.0); Total Protein 5.9 g/dL (6.4-8.9)
[2021-04-14 09:46] LABS: ABS Lymphocytes 0.6 10^3/ul (1.0-4.8); ABS Monocytes 0.3 10^3/ul (0-0.8); ABS Neutrophils 0.7 10^3/ul (1.5-7.7); Eosinophil % 0.4 %; Lymphocyte % 35.2 %; Nucleated Red Blood Cells % 1.2
[2021-04-14 11:09] LABS: C Reactive Protein 71.83 mg/L (<8.01)
[2021-04-14] MEDS: MAGNESIUM GLUCONATE 30 MG PO SCH (20:34)
[2021-04-15] MEDS: ZOSYN 3.375 GM Q8H per EXTENDED INFUSION IV SCH ×3 (03:48→21:32)
[2021-04-15 07:09] LABS: Hematocrit 29 % (35-47); Hemoglobin 9.9 g/dL (12.0-16.0); Mean Corpuscular HGB Conc 35 g/dL (31-36); Mean Corpuscular Hemoglobin 35 pg (27-31); Mean Corpuscular Volume 102 fL (80-97); Mean Platelet Volume 8.5 fL (7.4-10.4); Platelet Count 217 10^3/uL (150-450); Red Blood Count 2.82 10^6 /uL (3.70-4.87); Red Cell Distribution Width 17 % (10-15); White Blood Count 1.7 10^3/uL (3.5-10.8)
[2021-04-15 07:12] LABS: ABS Neutrophils 0.7 10^3/ul (1.5-7.7)
[2021-04-15 07:27] LABS: Albumin 3.2 g/dL (3.2-5.2); Albumin/Globulin Ratio 1.5 (1-3); Calcium 8.3 mg/dL (8.6-10.3); EGFR African American 128.4 (>60); EGFR Non-African American 106.1 (>60); Globulin 2.2 g/dL (2-4); Potassium 3.9 mmol/L (3.5-5.0); Total Bilirubin 0.3 mg/dL (0.2-1.0); Total Protein 5.4 g/dL (6.4-8.9)
[2021-04-15 07:57] LABS: ABS Lymphocytes 0.5 10^3/ul (1.0-4.8); ABS Monocytes 0.4 10^3/ul (0-0.8); Eosinophil % 0.4 %; Lymphocyte % 32.4 %
[2021-04-15] MEDS: Mometasone/Formoter 200/5 MDI INH SCH ×2 (09:06→19:59)
[2021-04-15] MEDS: Mupirocin 2% OINT TUBE TOPICAL SCH ×2 (09:56→21:16)
[2021-04-15] MEDS: Nicotine PATCH 21 MG/24 HR PATCH TRANSDERM SCH (09:57)
[2021-04-15] MEDS: MAGNESIUM GLUCONATE 30 MG PO SCH (21:33)
[2021-04-16] MEDS: ZOSYN 3.375 GM Q8H per EXTENDED INFUSION IV SCH ×3 (04:29→21:30)
[2021-04-16 07:45] LABS: Hematocrit 28 % (35-47); Hemoglobin 9.6 g/dL (12.0-16.0); Mean Corpuscular HGB Conc 35 g/dL (31-36); Mean Corpuscular Hemoglobin 35 pg (27-31); Mean Corpuscular Volume 101 fL (80-97); Mean Platelet Volume 8.7 fL (7.4-10.4); Platelet Count 243 10^3/uL (150-450); Red Blood Count 2.75 10^6 /uL (3.70-4.87); Red Cell Distribution Width 17 % (10-15)
[2021-04-16 07:57] LABS: Calcium 8.5 mg/dL (8.6-10.3); EGFR African American 139.7 (>60); EGFR Non-African American 115.4 (>60); Potassium 4.1 mmol/L (3.5-5.0)
[2021-04-16] MEDS: Albuterol HFA INHALER 8 gm MDI INH PRN (07:57)
[2021-04-16] MEDS: Mometasone/Formoter 200/5 MDI INH SCH ×2 (07:58→19:01)
[2021-04-16 08:01] LABS: ABS Lymphocytes 0.8 10^3/ul (1.0-4.8); ABS Monocytes 0.5 10^3/ul (0-0.8); ABS Neutrophils 0.7 10^3/ul (1.5-7.7); ABS Nucleated RBC 0.1 10^3/ul; Eosinophil % 0.2 %; Lymphocyte % 39.4 %; Nucleated Red Blood Cells % 2.3
[2021-04-16] MEDS: Nicotine PATCH 21 MG/24 HR PATCH TRANSDERM SCH (08:45)
[2021-04-16] MEDS: Mupirocin 2% OINT TUBE TOPICAL SCH ×2 (08:47→21:32)
[2021-04-16 09:12] LABS: C Reactive Protein 19.78 mg/L (<8.01)
[2021-04-16] MEDS: MAGNESIUM GLUCONATE 30 MG PO SCH (21:34)
[2021-04-17] MEDS: ZOSYN 3.375 GM Q8H per EXTENDED INFUSION IV SCH ×2 (04:35→11:50)
[2021-04-17 07:07] LABS: ABS Lymphocytes 0.9 10^3/ul (1.0-4.8); ABS Monocytes 0.6 10^3/ul (0-0.8); Eosinophil % 0.3 %; Hematocrit 28 % (35-47); Hemoglobin 9.8 g/dL (12.0-16.0); Lymphocyte % 36.3 %; Mean Corpuscular HGB Conc 35 g/dL (31-36); Mean Corpuscular Hemoglobin 35 pg (27-31); Mean Corpuscular Volume 101 fL (80-97); Mean Platelet Volume 8.4 fL (7.4-10.4); Nucleated Red Blood Cells % 1.5; Platelet Count 271 10^3/uL (150-450); Red Cell Distribution Width 17 % (10-15); White Blood Count 2.5 10^3/uL (3.5-10.8)
[2021-04-17 07:17] LABS: Calcium 8.5 mg/dL (8.6-10.3); EGFR African American 133.8 (>60); EGFR Non-African American 110.6 (>60); Potassium 4.2 mmol/L (3.5-5.0)
[2021-04-17] MEDS: Mometasone/Formoter 200/5 MDI INH SCH (07:21)
[2021-04-17] MEDS: Mupirocin 2% OINT TUBE TOPICAL SCH (09:08)
[2021-04-17] MEDS: Nicotine PATCH 21 MG/24 HR PATCH TRANSDERM SCH (09:09)
[2021-04-17 14:07] VITALS: BP 141/53
== END 2021-04-17 14:45 | disposition home or self-care (01) | DRG 808 ==
LOC: ED 13:42 → MED 18:17
PROVIDERS: ADMIT Internal Medicine; ATTEND Internal Medicine Hematology & Oncology

== ENCOUNTER 2022-04-10 19:35 | Inpatient (IN) ==
[2022-04-10] MEDS ORDERED: Ondansetron 4 mg VIAL 2 MG/ML 2 ml VIAL IV ONE (20:45)
[2022-04-10] MEDS ORDERED: NS 0.9% 1000 ml BAG 1,000 ML IV ONE (20:46)
[2022-04-10 21:44] LABS: ABS Eosinophils 0.2 10^3/ul (0-0.6); ABS Lymphocytes 1.6 10^3/ul (1.0-4.8); ABS Monocytes 0.7 10^3/ul (0-0.8); ABS Neutrophils 1.2 10^3/ul (1.5-7.7); Eosinophil % 4.2 %; Hematocrit 38 % (35-47); Hemoglobin 12.6 g/dL (12.0-16.0); Mean Corpuscular HGB Conc 33 g/dL (31-36); Mean Corpuscular Hemoglobin 33 pg (27-31); Mean Corpuscular Volume 100 fL (80-97); Mean Platelet Volume 7.6 fL (7.4-10.4); Nucleated Red Blood Cells % 0.2; Platelet Count 216 10^3/uL (150-450); Red Blood Count 3.82 10^6 /uL (3.70-4.87); Red Cell Distribution Width 16 % (10-15); White Blood Count 3.6 10^3/uL (3.5-10.8)
[2022-04-10 21:54] LABS: Activated Partial Thrombo Time 33.4 seconds (26.0-38.0); INR 1.03 (0.89-1.11)
[2022-04-10 22:26] LABS: Albumin 4.2 g/dL (3.2-5.2); Albumin/Globulin Ratio 2.2 (1-3); Calcium 9.9 mg/dL (8.6-10.3); Globulin 1.9 g/dL (2-4); Potassium 4.7 mmol/L (3.5-5.0); Total Bilirubin 0.4 mg/dL (0.2-1.0); Total Protein 6.1 g/dL (6.4-8.9); eGFR CKD-EPI 95.7 (>60)
[2022-04-10] MEDS ORDERED: Morphine 4 MG/ML VIAL (1 ml) IV ONE (23:05)
[2022-04-10] MEDS ORDERED: fentaNYL 100 mcg/2 ml 50 MCG/ML VIAL IV SLOW PU ONE (23:17)
[2022-04-10 23:22] LABS: High Sensitivity Troponin 1 Hr 10 pg/mL (<15)
[2022-04-11] MEDS ORDERED: Albuterol HFA INHALER 8 gm MDI INH PRN (05:12)
[2022-04-11] MEDS ORDERED: Morphine ORAL.SOLN 10 mg 2 mg/ml UDC 5 ml (10 mg) PO PRN ×3 (05:49→11:32)
[2022-04-11] MEDS ORDERED: Dextrose 50% Syringe 50 ml 25 GM/50 ML SYRINGE IV PUSH PRN (05:54)
[2022-04-11] MEDS: Nicotine PATCH 21 MG/24 HR PATCH TRANSDERM SCH (07:35)
[2022-04-11 07:41] LABS: Hematocrit 33 % (35-47); Hemoglobin 11.5 g/dL (12.0-16.0); Mean Corpuscular HGB Conc 35 g/dL (31-36); Mean Corpuscular Hemoglobin 35 pg (27-31); Mean Corpuscular Volume 101 fL (80-97); Mean Platelet Volume 7.8 fL (7.4-10.4); Platelet Count 188 10^3/uL (150-450); Red Cell Distribution Width 16 % (10-15); White Blood Count 3.4 10^3/uL (3.5-10.8)
[2022-04-11 08:14] LABS: ABS Eosinophils 0.1 10^3/ul (0-0.6); ABS Lymphocytes 1.7 10^3/ul (1.0-4.8); ABS Monocytes 0.7 10^3/ul (0-0.8); ABS Neutrophils 0.9 10^3/ul (1.5-7.7); Eosinophil % 3.1 %; Lymphocyte % 49.1 %; Nucleated Red Blood Cells % 0.1
[2022-04-11] MEDS ORDERED: POMALIDOMIDE 3 MG PO SCH (09:00)
[2022-04-11 09:42] LABS: Vitamin D Total 25(OH) 16.2 ng/mL (20-50)
[2022-04-11] MEDS: Mometasone/Formoter 200/5 MDI INH SCH ×2 (09:42→19:56)
[2022-04-11] MEDS ORDERED: Senna TAB 8.6 mg TAB PO PRN (17:45)
[2022-04-11] MEDS ORDERED: Magnesium Hydroxide LIQ 30 ML UDC PO PRN (17:45)
[2022-04-11] MEDS: Cholecalciferol (VIT D3) 1,000 unit TAB PO SCH (19:58)
[2022-04-12 06:21] LABS: ABS Eosinophils 0.1 10^3/ul (0-0.6); ABS Lymphocytes 1.5 10^3/ul (1.0-4.8); ABS Monocytes 0.7 10^3/ul (0-0.8); ABS Neutrophils 1.1 10^3/ul (1.5-7.7); Eosinophil % 3.2 %; Hematocrit 35 % (35-47); Hemoglobin 11.7 g/dL (12.0-16.0); Lymphocyte % 43.3 %; Mean Corpuscular HGB Conc 33 g/dL (31-36); Mean Corpuscular Hemoglobin 33 pg (27-31); Mean Corpuscular Volume 100 fL (80-97); Mean Platelet Volume 7.9 fL (7.4-10.4); Nucleated Red Blood Cells % 0.1; Platelet Count 202 10^3/uL (150-450); Red Blood Count 3.51 10^6 /uL (3.70-4.87); Red Cell Distribution Width 16 % (10-15); White Blood Count 3.4 10^3/uL (3.5-10.8)
[2022-04-12 06:47] LABS: Blood Urea Nitrogen 12 mg/dL (6-24); CO2 Carbon Dioxide 26 mmol/L (22-32); Calcium 8.5 mg/dL (8.6-10.3); Chloride 105 mmol/L (101-111); Glucose 165 mg/dL (70-100); Sodium 140 mmol/L (135-145); eGFR CKD-EPI 97.5 (>60)
[2022-04-12 06:58] LABS: Anion Gap 9 mmol/L (2-11)
[2022-04-12] MEDS: Mometasone/Formoter 200/5 MDI INH SCH ×2 (08:19→19:26)
[2022-04-12] MEDS: Nicotine PATCH 21 MG/24 HR PATCH TRANSDERM SCH (08:29)
[2022-04-12] MEDS: Cholecalciferol (VIT D3) 1,000 unit TAB PO SCH (08:29)
[2022-04-12 09:32] LABS: Albumin 3.5 g/dL (3.2-5.2); Magnesium 1.6 mg/dL (1.9-2.7); Phosphorus 3.6 mg/dL (2.5-5.0); Potassium Redraw 4.4 mmol/L (3.5-5.0)
[2022-04-12] MEDS ORDERED: Dextrose 50% Syringe 50 ml 25 GM/50 ML SYRINGE IV PUSH PRN ×3 (10:44→21:31)
[2022-04-12] MEDS ORDERED: Magnesium Sulfate 2 gm BAG 2 GM/50 ML BAG IVPB ONE (18:19)
[2022-04-13] MEDS: Mometasone/Formoter 200/5 MDI INH SCH ×2 (07:49→19:31)
[2022-04-13] MEDS: Nicotine PATCH 21 MG/24 HR PATCH TRANSDERM SCH (08:46)
[2022-04-13] MEDS: Cholecalciferol (VIT D3) 1,000 unit TAB PO SCH (08:51)
[2022-04-14 05:35] LABS: ABS Lymphocytes 1.7 10^3/ul (1.0-4.8); ABS Monocytes 0.8 10^3/ul (0-0.8); ABS Neutrophils 1.8 10^3/ul (1.5-7.7); Eosinophil % 0.6 %; Hematocrit 36 % (35-47); Lymphocyte % 39.4 %; Mean Corpuscular HGB Conc 33 g/dL (31-36); Mean Corpuscular Hemoglobin 33 pg (27-31); Mean Corpuscular Volume 100 fL (80-97); Mean Platelet Volume 7.8 fL (7.4-10.4); Nucleated Red Blood Cells % 0.3; Platelet Count 314 10^3/uL (150-450); Red Blood Count 3.63 10^6 /uL (3.70-4.87); Red Cell Distribution Width 16 % (10-15); White Blood Count 4.3 10^3/uL (3.5-10.8)
[2022-04-14 05:59] LABS: Calcium 8.8 mg/dL (8.6-10.3); Magnesium 2.3 mg/dL (1.9-2.7); Phosphorus 3.3 mg/dL (2.5-5.0); eGFR CKD-EPI 96.1 (>60)
[2022-04-14] MEDS: Mometasone/Formoter 200/5 MDI INH SCH ×2 (07:39→20:25)
[2022-04-14] MEDS: Nicotine PATCH 21 MG/24 HR PATCH TRANSDERM SCH (09:21)
[2022-04-14] MEDS: Cholecalciferol (VIT D3) 1,000 unit TAB PO SCH (09:23)
[2022-04-14] MEDS: oxyCODONE SR 10 mg TAB PO SCH ×2 (11:37→20:26)
[2022-04-14] MEDS ORDERED: Polyethylene Glycol 3350 17 GM PACKET PO SCH (12:00)
[2022-04-14] MEDS: Senna TAB 8.6 mg TAB PO SCH (20:27)
[2022-04-15] MEDS: Mometasone/Formoter 200/5 MDI INH SCH ×2 (07:45→20:26)
[2022-04-15] MEDS: oxyCODONE SR 10 mg TAB PO SCH ×2 (11:11→22:18)
[2022-04-15] MEDS: Cholecalciferol (VIT D3) 1,000 unit TAB PO SCH (11:12)
[2022-04-15] MEDS: Nicotine PATCH 21 MG/24 HR PATCH TRANSDERM SCH (11:13)
[2022-04-15] MEDS: Senna TAB 8.6 mg TAB PO SCH (22:17)
[2022-04-16 07:07] LABS: Calcium 9.1 mg/dL (8.6-10.3); Potassium 4.5 mmol/L (3.5-5.0)
[2022-04-16] MEDS: Mometasone/Formoter 200/5 MDI INH SCH (07:58)
[2022-04-16] MEDS: Nicotine PATCH 21 MG/24 HR PATCH TRANSDERM SCH (08:42)
[2022-04-16] MEDS: oxyCODONE SR 10 mg TAB PO SCH (08:45)
[2022-04-16] MEDS: Cholecalciferol (VIT D3) 1,000 unit TAB PO SCH (08:46)
[2022-04-16 19:06] VITALS: BP 150/84
[2022-04-17] MEDS ORDERED: POMALIDOMIDE 3 MG PO SCH (09:00)
== END 2022-04-16 17:15 | disposition short-term general hospital (02) | DRG 543 ==
LOC: EDHOLD 19:35 → ED 19:35 → SUATTDRO 04-11 05:10 → EDHOLD 04-11 16:06 → SSU 04-11 16:35
PROVIDERS: ADMIT Internal Medicine; ATTEND Internal Medicine

== ENCOUNTER 2022-04-16 14:26 | Inpatient (IN) ==
[2022-04-16] MEDS ORDERED: Albuterol HFA INHALER 8 gm MDI INH PRN (17:06)
[2022-04-16] MEDS ORDERED: Diphenoxylat/Atrop 2.5-0.025mg TAB PO PRN (17:06)
[2022-04-16] MEDS ORDERED: Magnesium Hydroxide LIQ 30 ML UDC PO PRN (17:06)
[2022-04-16] MEDS ORDERED: Dextrose 50% Syringe 50 ml 25 GM/50 ML SYRINGE IV PUSH PRN (17:09)
[2022-04-16] MEDS: Mometasone/Formoter 200/5 MDI INH SCH (19:53)
[2022-04-16] MEDS: oxyCODONE SR 10 mg TAB PO SCH (21:30)
[2022-04-16] MEDS: Senna TAB 8.6 mg TAB PO SCH (21:30)
[2022-04-17] MEDS: Mometasone/Formoter 200/5 MDI INH SCH ×2 (07:22→19:23)
[2022-04-17] MEDS: Cholecalciferol (VIT D3) 1,000 unit TAB PO SCH (08:18)
[2022-04-17] MEDS: oxyCODONE SR 10 mg TAB PO SCH ×2 (08:18→20:53)
[2022-04-17] MEDS: Nicotine PATCH 21 MG/24 HR PATCH TRANSDERM SCH (08:19)
[2022-04-17] MEDS: CMCS: Lactase Enzyme (NF) 3,000 UNIT TAB PO SCH ×3 (08:19→17:47)
[2022-04-17] MEDS: Senna TAB 8.6 mg TAB PO SCH (20:54)
[2022-04-18] MEDS: Mometasone/Formoter 200/5 MDI INH SCH ×2 (07:05→21:56)
[2022-04-18] MEDS: Nicotine PATCH 21 MG/24 HR PATCH TRANSDERM SCH (08:12)
[2022-04-18] MEDS: oxyCODONE SR 10 mg TAB PO SCH ×2 (08:14→19:48)
[2022-04-18] MEDS: CMCS: Lactase Enzyme (NF) 3,000 UNIT TAB PO SCH ×3 (08:19→18:38)
[2022-04-18] MEDS: Cholecalciferol (VIT D3) 1,000 unit TAB PO SCH (08:20)
[2022-04-18] MEDS ORDERED: Pneumococcal Vac 23-Polyvalent IM ONE (09:00)
[2022-04-18] MEDS: Senna TAB 8.6 mg TAB PO SCH (19:48)
[2022-04-19] MEDS: Mometasone/Formoter 200/5 MDI INH SCH ×2 (07:14→20:27)
[2022-04-19] MEDS: Nicotine PATCH 21 MG/24 HR PATCH TRANSDERM SCH (08:03)
[2022-04-19] MEDS: oxyCODONE SR 10 mg TAB PO SCH ×2 (08:04→20:15)
[2022-04-19] MEDS: Cholecalciferol (VIT D3) 1,000 unit TAB PO SCH (08:04)
[2022-04-19] MEDS: CMCS: Lactase Enzyme (NF) 3,000 UNIT TAB PO SCH ×3 (08:04→17:20)
[2022-04-19] MEDS: Senna TAB 8.6 mg TAB PO SCH (20:14)
[2022-04-20] MEDS: Mometasone/Formoter 200/5 MDI INH SCH ×2 (07:52→20:09)
[2022-04-20] MEDS: Nicotine PATCH 21 MG/24 HR PATCH TRANSDERM SCH (08:22)
[2022-04-20] MEDS: CMCS: Lactase Enzyme (NF) 3,000 UNIT TAB PO SCH ×3 (08:23→17:20)
[2022-04-20] MEDS: Cholecalciferol (VIT D3) 1,000 unit TAB PO SCH (08:23)
[2022-04-20] MEDS: oxyCODONE SR 10 mg TAB PO SCH ×2 (08:23→20:53)
[2022-04-20] MEDS: Senna TAB 8.6 mg TAB PO SCH (20:54)
[2022-04-21] MEDS: Mometasone/Formoter 200/5 MDI INH SCH ×2 (07:57→19:59)
[2022-04-21] MEDS: Cholecalciferol (VIT D3) 1,000 unit TAB PO SCH (08:20)
[2022-04-21] MEDS: oxyCODONE SR 10 mg TAB PO SCH ×2 (08:20→20:35)
[2022-04-21] MEDS: CMCS: Lactase Enzyme (NF) 3,000 UNIT TAB PO SCH ×3 (08:22→17:39)
[2022-04-21] MEDS: Nicotine PATCH 21 MG/24 HR PATCH TRANSDERM SCH (08:22)
[2022-04-21] MEDS: Senna TAB 8.6 mg TAB PO SCH (20:35)
[2022-04-22] MEDS: Mometasone/Formoter 200/5 MDI INH SCH ×3 (08:33→21:04)
[2022-04-22] MEDS: Nicotine PATCH 21 MG/24 HR PATCH TRANSDERM SCH (09:02)
[2022-04-22] MEDS: Cholecalciferol (VIT D3) 1,000 unit TAB PO SCH (09:04)
[2022-04-22] MEDS: oxyCODONE SR 10 mg TAB PO SCH ×2 (09:04→20:22)
[2022-04-22] MEDS: CMCS: Lactase Enzyme (NF) 3,000 UNIT TAB PO SCH ×3 (09:04→17:15)
[2022-04-22] MEDS: Senna TAB 8.6 mg TAB PO SCH (20:23)
[2022-04-23] MEDS: oxyCODONE SR 10 mg TAB PO SCH (08:01)
[2022-04-23] MEDS: CMCS: Lactase Enzyme (NF) 3,000 UNIT TAB PO SCH ×3 (08:03→17:51)
[2022-04-23] MEDS: Cholecalciferol (VIT D3) 1,000 unit TAB PO SCH (08:03)
[2022-04-23] MEDS: Nicotine PATCH 21 MG/24 HR PATCH TRANSDERM SCH (08:04)
[2022-04-23] MEDS: Mometasone/Formoter 200/5 MDI INH SCH ×2 (08:17→20:46)
[2022-04-23] MEDS: Senna TAB 8.6 mg TAB PO SCH (22:56)
[2022-04-23] MEDS: Insulin GLARGINE 100 un/ml 10 ml VIAL SUBCUT SCH (22:57)
[2022-04-24] MEDS: Mometasone/Formoter 200/5 MDI INH SCH ×2 (07:49→20:37)
[2022-04-24] MEDS: Cholecalciferol (VIT D3) 1,000 unit TAB PO SCH (08:13)
[2022-04-24] MEDS: CMCS: Lactase Enzyme (NF) 3,000 UNIT TAB PO SCH ×3 (08:13→17:55)
[2022-04-24] MEDS: Nicotine PATCH 21 MG/24 HR PATCH TRANSDERM SCH (08:17)
[2022-04-24] MEDS: oxyCODONE SR 10 mg TAB PO SCH ×2 (09:21→21:16)
[2022-04-24] MEDS: Senna TAB 8.6 mg TAB PO SCH (21:16)
[2022-04-24] MEDS: Insulin GLARGINE 100 un/ml 10 ml VIAL SUBCUT SCH (21:18)
[2022-04-25] MEDS: Mometasone/Formoter 200/5 MDI INH SCH ×2 (08:06→19:46)
[2022-04-25] MEDS: Nicotine PATCH 21 MG/24 HR PATCH TRANSDERM SCH (08:39)
[2022-04-25] MEDS: CMCS: Lactase Enzyme (NF) 3,000 UNIT TAB PO SCH ×3 (08:39→16:57)
[2022-04-25] MEDS: Cholecalciferol (VIT D3) 1,000 unit TAB PO SCH (08:39)
[2022-04-25] MEDS: oxyCODONE SR 10 mg TAB PO SCH ×2 (08:40→21:38)
[2022-04-25] MEDS: Insulin GLARGINE 100 un/ml 10 ml VIAL SUBCUT SCH (21:38)
[2022-04-25] MEDS: Senna TAB 8.6 mg TAB PO SCH (21:38)
[2022-04-26] MEDS: Mometasone/Formoter 200/5 MDI INH SCH ×2 (07:36→21:28)
[2022-04-26] MEDS: Nicotine PATCH 21 MG/24 HR PATCH TRANSDERM SCH (10:11)
[2022-04-26] MEDS: CMCS: Lactase Enzyme (NF) 3,000 UNIT TAB PO SCH ×3 (10:13→16:51)
[2022-04-26] MEDS: Cholecalciferol (VIT D3) 1,000 unit TAB PO SCH (10:14)
[2022-04-26] MEDS: oxyCODONE SR 10 mg TAB PO SCH ×2 (10:16→20:37)
[2022-04-26] MEDS: Insulin GLARGINE 100 un/ml 10 ml VIAL SUBCUT SCH (20:37)
[2022-04-26] MEDS: Senna TAB 8.6 mg TAB PO SCH (20:37)
[2022-04-27] MEDS: Mometasone/Formoter 200/5 MDI INH SCH ×2 (07:23→20:02)
[2022-04-27] MEDS: Nicotine PATCH 21 MG/24 HR PATCH TRANSDERM SCH (08:34)
[2022-04-27] MEDS: Cholecalciferol (VIT D3) 1,000 unit TAB PO SCH (08:35)
[2022-04-27] MEDS: CMCS: Lactase Enzyme (NF) 3,000 UNIT TAB PO SCH ×3 (08:35→17:08)
[2022-04-27] MEDS: oxyCODONE SR 10 mg TAB PO SCH ×2 (08:35→21:47)
[2022-04-27] MEDS: Insulin GLARGINE 100 un/ml 10 ml VIAL SUBCUT SCH (21:44)
[2022-04-27] MEDS: Senna TAB 8.6 mg TAB PO SCH (21:46)
[2022-04-28] MEDS: Mometasone/Formoter 200/5 MDI INH SCH ×2 (07:38→20:51)
[2022-04-28] MEDS: Cholecalciferol (VIT D3) 1,000 unit TAB PO SCH (08:31)
[2022-04-28] MEDS: oxyCODONE SR 10 mg TAB PO SCH ×2 (08:32→21:06)
[2022-04-28] MEDS: Nicotine PATCH 21 MG/24 HR PATCH TRANSDERM SCH (08:32)
[2022-04-28] MEDS: CMCS: Lactase Enzyme (NF) 3,000 UNIT TAB PO SCH ×3 (08:33→18:17)
[2022-04-28] MEDS: Insulin GLARGINE 100 un/ml 10 ml VIAL SUBCUT SCH (21:07)
[2022-04-28] MEDS: Senna TAB 8.6 mg TAB PO SCH (21:07)
[2022-04-29] MEDS: Mometasone/Formoter 200/5 MDI INH SCH ×2 (07:59→20:24)
[2022-04-29] MEDS: CMCS: Lactase Enzyme (NF) 3,000 UNIT TAB PO SCH ×3 (08:57→17:29)
[2022-04-29] MEDS: Cholecalciferol (VIT D3) 1,000 unit TAB PO SCH (08:58)
[2022-04-29] MEDS: Nicotine PATCH 21 MG/24 HR PATCH TRANSDERM SCH (08:59)
[2022-04-29] MEDS: oxyCODONE SR 10 mg TAB PO SCH ×2 (08:59→20:28)
[2022-04-29] MEDS: Insulin GLARGINE 100 un/ml 10 ml VIAL SUBCUT SCH (20:29)
[2022-04-29] MEDS: Senna TAB 8.6 mg TAB PO SCH (20:29)
[2022-04-30] MEDS: CMCS: Lactase Enzyme (NF) 3,000 UNIT TAB PO SCH ×3 (09:02→17:37)
[2022-04-30] MEDS: Cholecalciferol (VIT D3) 1,000 unit TAB PO SCH (09:02)
[2022-04-30] MEDS: oxyCODONE SR 10 mg TAB PO SCH ×2 (09:02→20:56)
[2022-04-30] MEDS: Nicotine PATCH 21 MG/24 HR PATCH TRANSDERM SCH (09:04)
[2022-04-30] MEDS: Mometasone/Formoter 200/5 MDI INH SCH ×2 (09:08→19:04)
[2022-04-30] MEDS: Senna TAB 8.6 mg TAB PO SCH (20:55)
[2022-04-30] MEDS: Insulin GLARGINE 100 un/ml 10 ml VIAL SUBCUT SCH (20:57)
[2022-05-01] MEDS: Mometasone/Formoter 200/5 MDI INH SCH (07:26)
[2022-05-01] MEDS: CMCS: Lactase Enzyme (NF) 3,000 UNIT TAB PO SCH (08:30)
[2022-05-01 09:59] VITALS: BP 128/57
[2022-05-01] MEDS: Nicotine PATCH 21 MG/24 HR PATCH TRANSDERM SCH (10:04)
[2022-05-01] MEDS: Cholecalciferol (VIT D3) 1,000 unit TAB PO SCH (10:05)
[2022-05-01] MEDS: oxyCODONE SR 10 mg TAB PO SCH (10:08)
== END 2022-05-01 11:25 | disposition home health service (06) | DRG 563 ==
LOC: SUATTDRO 18:19 → SSU 18:19 → MEDTELE 04-29 02:00
PROVIDERS: ADMIT Internal Medicine; ATTEND Hospitalist

== ENCOUNTER 2022-06-17 12:49 | Inpatient (IN) ==
[~2022-06-17 12:49] MED LIST: CARFILZOMIB IVPB SCH; D5W IVPB SCH; Dexamethasone IV 20 MG in Premix IV 0 ML IVPB SCH
[2022-06-17 16:58] LABS: Urine Appearance Turbid; Urine Bilirubin Negative (Negative); Urine Blood 3+ (Negative); Urine Color Amber; Urine Glucose Negative (Negative); Urine Ketones Negative (Negative); Urine Nitrite Negative (Negative); Urine Protein 2+(100 mg/dL) (Negative); Urine Specific Gravity 1.013 (1.002-1.030); Urine Urobilinogen Negative (Negative)
[2022-06-17] MEDS ORDERED: Piperacillin/Tazobac ADVAN 3.375 GM in NS 0.9% 100 ml BAG 100 ML IV ONE (17:22)
[2022-06-17 17:26] LABS: Urine Bacteria Absent (Absent); Urine Red Blood Cell 3+(>10/hpf) (Absent); Urine Squamous Epithelial Cell Present (Absent); Urine White Blood Cell 3+(>20/hpf) (Absent); Urine Yeast Present (Absent)
[2022-06-17] MEDS ORDERED: Zosyn per Pharmacy NOTE FOLLOW UP SCH (18:00)
[2022-06-17 18:08] LABS: ABS Eosinophils 0.1 10^3/ul (0-0.6); ABS Lymphocytes 1.3 10^3/ul (1.0-4.8); ABS Monocytes 0.6 10^3/ul (0-0.8); ABS Neutrophils 6.7 10^3/ul (1.5-7.7); Eosinophil % 1.2 %; Hematocrit 31 % (35-47); Hemoglobin 10.1 g/dL (12.0-16.0); Lymphocyte % 14.5 %; Mean Corpuscular HGB Conc 32 g/dL (31-36); Mean Corpuscular Hemoglobin 31 pg (27-31); Mean Corpuscular Volume 98 fL (80-97); Nucleated Red Blood Cells % 0.1; Platelet Count 208 10^3/uL (150-450); Red Blood Count 3.21 10^6 /uL (3.70-4.87); Red Cell Distribution Width 17 % (10-15); White Blood Count 8.7 10^3/uL (3.5-10.8)
[2022-06-17 18:13] LABS: Albumin 3.1 g/dL (3.2-5.2); Calcium 7.4 mg/dL (8.6-10.3); Potassium 3.5 mmol/L (3.5-5.0); Total Bilirubin 0.3 mg/dL (0.2-1.0)
[2022-06-17 18:19] LABS: Albumin/Globulin Ratio 1.8 (1-3); Globulin 1.7 g/dL (2-4); Total Protein 4.8 g/dL (6.4-8.9); eGFR CKD-EPI 85.8 (>60)
[2022-06-17] MEDS: Albuterol HFA INHALER 8 gm MDI INH PRN (21:36)
[2022-06-17] MEDS ORDERED: ZOSYN 3.375 GM Q8H per EXTENDED INFUSION IV SCH (22:00)
[2022-06-17] MEDS: Morphine ER 15 mg TAB ** extended release PO SCH (22:37)
[2022-06-17] MEDS: Potassium Chlor 20 meq TAB.ER PO SCH (22:38)
[2022-06-18] MEDS: Albuterol HFA INHALER 8 gm MDI INH PRN ×2 (01:41→22:31)
[2022-06-18] MEDS ORDERED: Dextrose 50% Syringe 50 ml 25 GM/50 ML SYRINGE IV PUSH PRN (03:35)
[2022-06-18] MEDS ORDERED: NS 0.9% 1000 ml BAG 1,000 ML IV SCH (04:45)
[2022-06-18] MEDS ORDERED: ceFAZolin 2 GM in NS PREMIX 2 GM/100 ML BAG IVPB SCH (05:00)
[2022-06-18 07:18] LABS: ABS Eosinophils 0.2 10^3/ul (0-0.6); ABS Lymphocytes 1.3 10^3/ul (1.0-4.8); ABS Monocytes 0.6 10^3/ul (0-0.8); ABS Neutrophils 4.7 10^3/ul (1.5-7.7); Eosinophil % 2.9 %; Hematocrit 32 % (35-47); Hemoglobin 10.3 g/dL (12.0-16.0); Lymphocyte % 18.6 %; Mean Corpuscular HGB Conc 33 g/dL (31-36); Mean Corpuscular Hemoglobin 32 pg (27-31); Mean Corpuscular Volume 98 fL (80-97); Mean Platelet Volume 8.3 fL (7.4-10.4); Nucleated Red Blood Cells % 0.2; Platelet Count 189 10^3/uL (150-450); Red Blood Count 3.22 10^6 /uL (3.70-4.87); Red Cell Distribution Width 17 % (10-15); White Blood Count 6.8 10^3/uL (3.5-10.8)
[2022-06-18 08:04] LABS: Albumin 3.2 g/dL (3.2-5.2); Albumin/Globulin Ratio 1.9 (1-3); Calcium 7.6 mg/dL (8.6-10.3); Globulin 1.7 g/dL (2-4); Potassium 4.3 mmol/L (3.5-5.0); Total Bilirubin 0.4 mg/dL (0.2-1.0); Total Protein 4.9 g/dL (6.4-8.9); eGFR CKD-EPI 69.1 (>60)
[2022-06-18] MEDS ORDERED: Perflutren Lipid Microsphere 3 ML VIAL ONE (08:27)
[2022-06-18] MEDS ORDERED: CEFTRIAXONE IVPB SCH (09:00)
[2022-06-18] MEDS ORDERED: NS 0.9% IVPB SCH (09:00)
[2022-06-18] MEDS: Morphine ER 15 mg TAB ** extended release PO SCH ×2 (09:15→23:51)
[2022-06-18] MEDS: Potassium Chlor 20 meq TAB.ER PO SCH ×2 (09:17→20:46)
[2022-06-18 09:26] LABS: Magnesium 1.4 mg/dL (1.9-2.7); Phosphorus 2.1 mg/dL (2.5-5.0)
[2022-06-18] MEDS ORDERED: cefTRIAXone 2 GM ADDV.VIAL 2 GM in NS 0.9% 100 ml BAG 100 ML IV SCH (10:00)
[2022-06-18] MEDS ORDERED: Albuterol 2.5mg/3 ml (0.083%) NEB.SOLN INH PRN (11:35)
[2022-06-18] MEDS ORDERED: methylPREDNISolone SOD SUCC 40 mg/ml 1 ml VIAL IV ONE ×2 (11:54→18:30)
[2022-06-18] MEDS ORDERED: Albuterol/Ipratropium NEB.SOL (2.5/0.5 MG) 3 ML NEB.SOLN INH SCH (12:00)
[2022-06-18] MEDS ORDERED: Albuterol/Ipratropium NEB.SOL (2.5/0.5 MG) 3 ML NEB.SOLN INH STA ×2 (12:12→12:16)
[2022-06-18 14:21] LABS: C Reactive Protein 58.07 mg/L (<8.01)
[2022-06-18] MEDS ORDERED: Vancomycin 1,000 MG in NS 0.9% 250 ml 250 ML IVPB ONE (17:01)
[2022-06-18] MEDS ORDERED: Vancomycin per Pharmacy 1 EA NOTE FOLLOW UP SCH (18:00)
[2022-06-18] MEDS ORDERED: Vancomycin 1,750 MG in NS 0.9% 500 ml BAG 500 ML IVPB ONE (18:00)
[2022-06-19 06:10] LABS: Hematocrit 30 % (35-47); Hemoglobin 9.6 g/dL (12.0-16.0); Mean Corpuscular HGB Conc 32 g/dL (31-36); Mean Corpuscular Hemoglobin 32 pg (27-31); Mean Corpuscular Volume 98 fL (80-97); Platelet Count 147 10^3/uL (150-450); Red Blood Count 3.03 10^6 /uL (3.70-4.87); Red Cell Distribution Width 17 % (10-15); White Blood Count 9.1 10^3/uL (3.5-10.8)
[2022-06-19 06:41] LABS: Magnesium 1.3 mg/dL (1.9-2.7); Potassium 4.5 mmol/L (3.5-5.0); eGFR CKD-EPI 103.8 (>60)
[2022-06-19] MEDS ORDERED: Magnesium Sulf 4 GM/100 ML IV 4,000 MG/100 ML BAG IVPB ONE (08:45)
[2022-06-19] MEDS: Morphine ER 15 mg TAB ** extended release PO SCH ×2 (09:21→19:44)
[2022-06-19] MEDS: Albuterol HFA INHALER 8 gm MDI INH SCH ×4 (09:21→23:10)
[2022-06-19] MEDS: Potassium Chlor 20 meq TAB.ER PO SCH ×2 (09:21→19:45)
[2022-06-19] MEDS: Ondansetron ODT 4 mg TAB 4 MG TAB PO PRN ×2 (10:14→19:48)
[2022-06-19] MEDS: Vancomycin 1,750 MG in NS 0.9% 500 ml BAG 500 ML IVPB SCH (13:45)
[2022-06-19] MEDS ORDERED: methylPREDNISolone SOD SUCC 40 mg/ml 1 ml VIAL IV ONE (14:53)
[2022-06-19] MEDS ORDERED: Albuterol/Ipratropium NEB.SOL (2.5/0.5 MG) 3 ML NEB.SOLN INH PRN (15:07)
[2022-06-19] MEDS: Mometasone/Formoter 100/5 MDI INH SCH (19:35)
[2022-06-20] MEDS: Mometasone/Formoter 100/5 MDI INH SCH ×2 (07:52→19:48)
[2022-06-20] MEDS: Potassium Chlor 20 meq TAB.ER PO SCH ×2 (09:18→21:29)
[2022-06-20] MEDS: Morphine ER 15 mg TAB ** extended release PO SCH ×2 (09:18→21:28)
[2022-06-20] MEDS: Calcium Carb (TUMS) 500 mg CHEW TAB PO PRN ×2 (11:06→23:27)
[2022-06-20] MEDS: Vancomycin 1,750 MG in NS 0.9% 500 ml BAG 500 ML IVPB SCH (14:42)
[2022-06-21] MEDS: Ondansetron ODT 4 mg TAB 4 MG TAB PO PRN (00:17)
[2022-06-21] MEDS: Mometasone/Formoter 100/5 MDI INH SCH ×2 (07:50→20:11)
[2022-06-21] MEDS: Morphine ER 15 mg TAB ** extended release PO SCH ×2 (08:04→19:11)
[2022-06-21] MEDS: Potassium Chlor 20 meq TAB.ER PO SCH ×2 (08:04→19:11)
[2022-06-21] MEDS ORDERED: Vancomycin Trough Check NOTE FOLLOW UP ONE (13:30)
[2022-06-21] MEDS: Vancomycin 1,750 MG in NS 0.9% 500 ml BAG 500 ML IVPB SCH (14:36)
[2022-06-22] MEDS: Ondansetron ODT 4 mg TAB 4 MG TAB PO PRN ×2 (04:17→18:24)
[2022-06-22 04:45] LABS: ABS Eosinophils 0.5 10^3/ul (0-0.6); ABS Lymphocytes 0.7 10^3/ul (1.0-4.8); ABS Monocytes 0.5 10^3/ul (0-0.8); ABS Neutrophils 3.4 10^3/ul (1.5-7.7); Eosinophil % 9.1 %; Hematocrit 28 % (35-47); Hemoglobin 9.4 g/dL (12.0-16.0); Lymphocyte % 13.9 %; Mean Corpuscular HGB Conc 33 g/dL (31-36); Mean Corpuscular Hemoglobin 32 pg (27-31); Mean Corpuscular Volume 97 fL (80-97); Nucleated Red Blood Cells % 0.1; Platelet Count 159 10^3/uL (150-450); Red Blood Count 2.93 10^6 /uL (3.70-4.87); Red Cell Distribution Width 17 % (10-15)
[2022-06-22 05:09] LABS: Anion Gap 9 mmol/L (2-11); Blood Urea Nitrogen 4 mg/dL (6-24); CO2 Carbon Dioxide 27 mmol/L (22-32); Calcium 8.4 mg/dL (8.6-10.3); Chloride 104 mmol/L (101-111); Glucose 134 mg/dL (70-100); Magnesium 1.4 mg/dL (1.9-2.7); Potassium 3.5 mmol/L (3.5-5.0); Sodium 140 mmol/L (135-145); eGFR CKD-EPI 107.1 (>60)
[2022-06-22] MEDS ORDERED: Magnesium Sulfate IV 3 GM in NS 0.9% 100 ml BAG 100 ML IVPB ONE (07:16)
[2022-06-22] MEDS ORDERED: Potassium Chlor 20 meq TAB.ER PO ONE (07:16)
[2022-06-22] MEDS: Mometasone/Formoter 100/5 MDI INH SCH ×2 (07:28→20:23)
[2022-06-22] MEDS: Morphine ER 15 mg TAB ** extended release PO SCH ×2 (07:54→20:50)
[2022-06-22] MEDS: Potassium Chlor 20 meq TAB.ER PO SCH ×2 (09:16→20:51)
[2022-06-22] MEDS: Vancomycin 2,000 MG in NS 0.9% 500 ml BAG 500 ML IVPB SCH (10:25)
[2022-06-22 14:26] LABS: TSH Ultra Thyroid Stim Horm 2.85 mcIU/mL (0.34-5.60)
[2022-06-22 14:38] LABS: Folate > 20.00 ng/mL (5.90-24.80)
[2022-06-22 14:39] LABS: Vitamin B12 382 pg/mL (180-914)
[2022-06-23] MEDS: Mometasone/Formoter 100/5 MDI INH SCH ×2 (07:48→19:23)
[2022-06-23] MEDS: Morphine ER 15 mg TAB ** extended release PO SCH ×2 (08:13→20:00)
[2022-06-23] MEDS: Potassium Chlor 20 meq TAB.ER PO SCH ×2 (08:13→20:01)
[2022-06-23] MEDS ORDERED: Vancomycin Trough Check NOTE FOLLOW UP ONE (09:30)
[2022-06-23 10:56] LABS: Vancomycin Trough 6.9 mcg/mL; eGFR CKD-EPI 102.2 (>60)
[2022-06-23] MEDS: Vancomycin 2,000 MG in NS 0.9% 500 ml BAG 500 ML IVPB SCH (11:29)
[2022-06-23] MEDS ORDERED: Cyanocobalamin INJ 1,000 MCG/ML VIAL 1 ML VIAL IM ONE (11:47)
[2022-06-23 18:29] LABS: ABS Eosinophils 0.4 10^3/ul (0-0.6); ABS Monocytes 0.5 10^3/ul (0-0.8); ABS Neutrophils 3.3 10^3/ul (1.5-7.7); Eosinophil % 6.8 %; Hematocrit 29 % (35-47); Hemoglobin 9.3 g/dL (12.0-16.0); Lymphocyte % 19.3 %; Mean Corpuscular HGB Conc 33 g/dL (31-36); Mean Corpuscular Hemoglobin 32 pg (27-31); Mean Corpuscular Volume 97 fL (80-97); Mean Platelet Volume 8.9 fL (7.4-10.4); Nucleated Red Blood Cells % 0.2; Platelet Count 190 10^3/uL (150-450); Red Blood Count 2.95 10^6 /uL (3.70-4.87); Red Cell Distribution Width 17 % (10-15); White Blood Count 5.3 10^3/uL (3.5-10.8)
[2022-06-23 18:41] LABS: Calcium 8.4 mg/dL (8.6-10.3); Potassium 3.7 mmol/L (3.5-5.0)
[2022-06-23 18:47] LABS: eGFR CKD-EPI 102.2 (>60)
[2022-06-24 05:07] LABS: ABS Eosinophils 0.4 10^3/ul (0-0.6); ABS Lymphocytes 0.9 10^3/ul (1.0-4.8); ABS Monocytes 0.6 10^3/ul (0-0.8); ABS Neutrophils 3.1 10^3/ul (1.5-7.7); Eosinophil % 7.7 %; Hematocrit 29 % (35-47); Hemoglobin 9.4 g/dL (12.0-16.0); Lymphocyte % 17.8 %; Mean Corpuscular HGB Conc 33 g/dL (31-36); Mean Corpuscular Hemoglobin 31 pg (27-31); Mean Corpuscular Volume 96 fL (80-97); Mean Platelet Volume 9.3 fL (7.4-10.4); Nucleated Red Blood Cells % 0.1; Platelet Count 207 10^3/uL (150-450); Red Blood Count 2.99 10^6 /uL (3.70-4.87); Red Cell Distribution Width 17 % (10-15)
[2022-06-24 05:57] LABS: Albumin 3.2 g/dL (3.2-5.2); Calcium 8.4 mg/dL (8.6-10.3); Globulin 1.6 g/dL (2-4); Potassium 3.8 mmol/L (3.5-5.0); Total Bilirubin 0.5 mg/dL (0.2-1.0); Total Protein 4.8 g/dL (6.4-8.9); eGFR CKD-EPI 104.3 (>60)
[2022-06-24] MEDS: Mometasone/Formoter 100/5 MDI INH SCH ×2 (07:52→19:20)
[2022-06-24] MEDS: Morphine ER 15 mg TAB ** extended release PO SCH ×3 (09:17→20:49)
[2022-06-24] MEDS: Potassium Chlor 20 meq TAB.ER PO SCH ×2 (09:17→20:18)
[2022-06-24] MEDS: Vancomycin 2,000 MG in NS 0.9% 500 ml BAG 500 ML IVPB SCH (10:18)
[2022-06-25] MEDS ORDERED: Lorazepam PYXIS KEY PRN (04:12)
[2022-06-25] MEDS ORDERED: LORazepam 2 mg VIAL 1 ml IV PUSH ONE (04:12)
[2022-06-25 05:48] LABS: ABS Eosinophils 0.3 10^3/ul (0-0.6); ABS Lymphocytes 0.8 10^3/ul (1.0-4.8); ABS Monocytes 0.6 10^3/ul (0-0.8); ABS Neutrophils 3.3 10^3/ul (1.5-7.7); Eosinophil % 6.1 %; Hematocrit 31 % (35-47); Hemoglobin 10.4 g/dL (12.0-16.0); Lymphocyte % 15.5 %; Mean Corpuscular HGB Conc 33 g/dL (31-36); Mean Corpuscular Hemoglobin 32 pg (27-31); Mean Corpuscular Volume 97 fL (80-97); Mean Platelet Volume 9.4 fL (7.4-10.4); Nucleated Red Blood Cells % 0.1; Platelet Count 231 10^3/uL (150-450); Red Blood Count 3.25 10^6 /uL (3.70-4.87); Red Cell Distribution Width 17 % (10-15); White Blood Count 5.1 10^3/uL (3.5-10.8)
[2022-06-25 06:16] LABS: Calcium 8.2 mg/dL (8.6-10.3); Potassium 3.4 mmol/L (3.5-5.0); eGFR CKD-EPI 102.7 (>60)
[2022-06-25] MEDS ORDERED: Potassium Chlor 20 meq TAB.ER PO ONE (06:55)
[2022-06-25] MEDS: Mometasone/Formoter 100/5 MDI INH SCH ×2 (07:11→20:15)
[2022-06-25] MEDS: Potassium Chlor 20 meq TAB.ER PO SCH ×2 (09:23→21:51)
[2022-06-25] MEDS: Morphine ER 15 mg TAB ** extended release PO SCH ×2 (09:24→21:51)
[2022-06-25] MEDS ORDERED: Calcium Carb (TUMS) 500 mg CHEW TAB PO ONE (15:37)
[2022-06-25] MEDS: Calcium Carb (TUMS) 500 mg CHEW TAB PO PRN (23:15)
[2022-06-26] MEDS ORDERED: Morphine 2 MG/ML SYRINGE IV ONE (03:27)
[2022-06-26 05:42] LABS: ABS Eosinophils 0.2 10^3/ul (0-0.6); ABS Lymphocytes 0.7 10^3/ul (1.0-4.8); ABS Monocytes 0.4 10^3/ul (0-0.8); ABS Neutrophils 2.4 10^3/ul (1.5-7.7); Eosinophil % 5.6 %; Hematocrit 31 % (35-47); Lymphocyte % 18.4 %; Mean Corpuscular HGB Conc 33 g/dL (31-36); Mean Corpuscular Hemoglobin 32 pg (27-31); Mean Corpuscular Volume 97 fL (80-97); Mean Platelet Volume 8.8 fL (7.4-10.4); Nucleated Red Blood Cells % 0.1; Platelet Count 235 10^3/uL (150-450); Red Blood Count 3.15 10^6 /uL (3.70-4.87); Red Cell Distribution Width 17 % (10-15); White Blood Count 3.7 10^3/uL (3.5-10.8)
[2022-06-26 06:25] LABS: Calcium 8.3 mg/dL (8.6-10.3); Potassium 3.4 mmol/L (3.5-5.0); eGFR CKD-EPI 103.8 (>60)
[2022-06-26] MEDS: Mometasone/Formoter 100/5 MDI INH SCH ×2 (07:50→19:44)
[2022-06-26] MEDS: Morphine ER 15 mg TAB ** extended release PO SCH ×2 (08:52→20:40)
[2022-06-26] MEDS: Potassium Chlor 20 meq TAB.ER PO SCH ×2 (08:52→20:40)
[2022-06-26] MEDS: Ondansetron ODT 4 mg TAB 4 MG TAB PO PRN ×2 (13:44→22:07)
[2022-06-26] MEDS: Calcium Carb (TUMS) 500 mg CHEW TAB PO PRN ×2 (14:51→20:40)
[2022-06-26 21:49] LABS: Calcium 8.5 mg/dL (8.6-10.3); Magnesium 1.7 mg/dL (1.9-2.7); Potassium 3.4 mmol/L (3.5-5.0); eGFR CKD-EPI 98.7 (>60)
[2022-06-26] MEDS ORDERED: Magnesium Sulfate 2 gm BAG 2 GM/50 ML BAG IVPB ONE (22:06)
[2022-06-26 22:43] LABS: High Sensitivity Troponin 1 Hr 7 pg/mL (<15)
[2022-06-27 06:18] LABS: ABS Eosinophils 0.3 10^3/ul (0-0.6); ABS Lymphocytes 0.6 10^3/ul (1.0-4.8); ABS Monocytes 0.4 10^3/ul (0-0.8); ABS Neutrophils 2.5 10^3/ul (1.5-7.7); Hematocrit 30 % (35-47); Lymphocyte % 16.5 %; Mean Corpuscular HGB Conc 33 g/dL (31-36); Mean Corpuscular Hemoglobin 32 pg (27-31); Mean Corpuscular Volume 97 fL (80-97); Mean Platelet Volume 8.2 fL (7.4-10.4); Platelet Count 234 10^3/uL (150-450); Red Cell Distribution Width 17 % (10-15); White Blood Count 3.8 10^3/uL (3.5-10.8)
[2022-06-27 07:18] LABS: Calcium 8.4 mg/dL (8.6-10.3); Magnesium 2.3 mg/dL (1.9-2.7); eGFR CKD-EPI 96.1 (>60)
[2022-06-27] MEDS: Mometasone/Formoter 100/5 MDI INH SCH (07:42)
[2022-06-27] MEDS: Potassium Chlor 20 meq TAB.ER PO SCH (08:25)
[2022-06-27] MEDS: Morphine ER 15 mg TAB ** extended release PO SCH (08:25)
[2022-06-27 11:57] VITALS: BP 124/76
[2022-06-27 12:02] LABS: Rapid COVID-19 Molecular Undetected (Undetected)
[2022-07-01 10:11] LABS: Anti-Glial/Neuronal Nuc Ab-1 A Negative titer (<1:240); Anti-Neuronal Nuclear Ab Type1 Negative titer (<1:240); Anti-Neuronal Nuclear Ab Type2 Negative titer (<1:240); Anti-Neuronal Nuclear Ab Type3 Negative titer (<1:240); CRMP-5 IgG Antibody Negative titer (<1:240); Purkinje Cell Cytoplasm Typ Tr Negative titer (<1:240); Purkinje Cell Cytoplasm Type 1 Negative titer (<1:240); Purkinje Cell Cytoplasm Type 2 Negative titer (<1:240)
== END 2022-06-27 12:30 | DRG 70 ==
LOC: CHOA 12:49 → MED 12:49 → SUATTDRO 18:42
PROVIDERS: ADMIT Internal Medicine Hematology & Oncology; ATTEND Internal Medicine